=== PATIENT | male | born 1950 | race Caucasian/White ===

== ENCOUNTER 2016-06-01 11:19 | Inpatient (IN) ==
--- NOTE | 2016-06-01 12:01 | Emergency Department Note ---
START Narrative - START START: I examined this patient and my medical decision-making was reviewed with the [employer] PRO[employer] MANAGER/PA/Advanced Practice Nurse/Resident Physician. I agree with the documented findings, disposition and treatment plan as described except to the extent set forth below. I did see and spoke with the patient and examined him. Does have lower extremity edema, weight gain, shortness of breath worse with exertion. He does not have significant amount of orthopnea but he said he does not really lay flat. Workup will be initiated for further evaluation of possible heart failure or exacerbation and I did review his EKG showed normal sinus rhythm with a rate of 60 without acute ischemic changes 1201
[2016-06-01] MEDS ORDERED: Furosemide 40 MG/4 ML VIAL IVP ONE (12:19)
[2016-06-01 12:32] LABS: Basophils % 0.2 %; Eosinophils # 0.2 K/mcL (0.0-0.6); Eosinophils % 1.4 %; Hematocrit 23.9 % (37.5-50.1); Immature Granulocytes % 0.5 % (0-4); Lymphocytes % 6.9 %; Mean Corpuscular HGB Conc 29.3 g/dL (31.6-35.5); Mean Corpuscular Hemoglobin 21.1 pg (28.0-33.3); Mean Platelet Volume 8.3 fL (9.4-12.4); Monocytes # 1.4 K/mcL (0.0-1.3); Monocytes % 9.6 %; Neutrophils # 11.6 K/mcL (1.6-8.9); Platelet Count 282 K/mcL (140-400); Red Blood Count 3.32 M/mcL (4.19-5.50); Red Cell Distribution Width 16.5 % (11.5-14.5); Segmented Neutrophils % 81.4 %
--- NOTE | 2016-06-01 12:36 | Emergency Department Note ---
Disposition Clinical Impression: Diastolic CHF, acute on chronic, Anemia Iron deficiency anemia Qualifiers: Iron deficiency anemia type: unspecified iron deficiency Qualified Code(s): D50.9 - Iron deficiency anemia, unspecified Disposition: Admitted As Inpatient Referrals: Christi Balderrama MD [Primary Care Provider] - Forms: ED Satisfaction Letter, Work/School Release General Adult HPI - General Chief complaint: ED General Medical Stated complaint: weight gain/COSMO Time Seen by Provider: 06/01/16 11:40 Source: patient Limitations: no limitations Nursing Notes Reviewed: Yes Vital Signs Reviewed: Yes - History of Present Illness HPI Narrative: 65-year-old male with a history of diastolic CHF presents with chief complaint of weight gain and shortness of breath. Over the past month patient has gained 20 pounds, states she has significant swelling in his lower extremities, has been short of breath which worsens with exertion. Patient uses oxygen at night and is currently requiring 1 L to maintain saturation over 90%. Patient uses Lasix for CHF. Last echo on December 2015 showed EF of 60-65% with mild diasolic dysfunction. CTA from 2016 shows cardiomegaly with coronary artery calcification. Patient denies chest pain, blurry vision, dizziness. Pain Scale: 4 - Related Data Home Medications Medication Instructions Recorded Confirmed Amlodipine Besylate 10 mg PO DAILY 01/10/16 04/18/16 Atenolol 100 mg PO DAILY 01/10/16 04/18/16 Cholecalciferol (D-3) [Vitamin D] 1,000 mg PO DAILY 04/18/16 04/18/16 Nabumetone [Relafen] 500 mg PO BID 04/18/16 04/18/16 Previous Rx's Medication Instructions Recorded Furosemide [Lasix] 20 mg PO DAILY 30 Days 01/14/16 Pantoprazole Sodium [Protonix] 40 mg PO DAILY 30 Days 01/14/16 Allergies Allergy/AdvReac Type Severity Reaction Status Date / Time No Known Allergies Allergy Verified 04/18/16 11:50 Review of Systems: Constitutional: Denies fever, chills HEENT: Denies blurry vision, sinus congestion Heart: Denies chest pain, palpitations Lungs: admits sob, denies cough, productive sputum Abdomen: Denies nausea vomiting, abdominal pain Extremities: ith leg swelling, denies leg pain Neuro: denies headache, numbness, tingling, confusion Past Medical History - Past Medical History Medical history: Reports: arthritis, CHF, hypertension, other Surgical history: Reports: appendectomy, orthopedic, other, other Psychiatric history: Reports: anxiety - Social History Smoking Status: Former smoker Smokeless Tobacco Status: No Alcohol use: Reports: none Drug use: Reports: none Physical Exam Head exam: atraumatic, normocephalic Eye exam: normal appearance, PERRL, EOMI ENT exam: normal exam, normal oropharynx, mucous membranes moist Neck exam: normal inspection, full ROM Chest inspection: normal inspection, symmetric chest wall rise Respiratory exam: lower lobe rhonchi, diminished breath sounds Cardiovascular exam: Present: regular rate, normal rhythm Abdominal exam: soft, Non-Tender, normal bowel sounds Extremities exam: 2+ pitting edema, present peripheral pulses. Neurological exam: alert, oriented X3 - General Limitations: no limitations General appearance: alert Course - Reevaluation(s) Reevaluation #1: 65-year-old male presenting with shortness of breath and lower extremity swelling. Chest x-ray shows pulmonary venous congestion, patient was elevated and his WBC to 14. CXR shows no evidence of opacification or consolidation. Patient's hgb is 7. Since last year patient's hgb has been decreasing. Last year it was 10-11 and decreased to 8-9 end of last year and now is 7. He had EGD done by Dr. Glover in Mar 2016 which was negative. He also has chronic hyponatremia which we was seen for december of last year which was determined to be hypervolemic hypernatremia and resolved after diuresis. Patient states he had not had increased water or salt intake. He was accepted by Dr. Haney for admission. Time: 14:06 Vital Signs Temperature 98.7 F 06/01/16 11:20 Pulse Rate 62 06/01/16 11:20 Respiratory Rate 20 06/01/16 11:20 Blood Pressure 108/66 06/01/16 11:20 O2 Sat by Pulse Oximetry 89 06/01/16 11:20 Temperature 98.7 F 06/01/16 11:20 Pulse Rate 62 06/01/16 11:20 Respiratory Rate 20 06/01/16 11:20 Blood Pressure 108/66 06/01/16 11:20 O2 Sat by Pulse Oximetry 100 06/01/16 11:23 Oxygen Delivery Oxygen Delivery Room Air Medical Decision Making - Medical Records Medical records reviewed: Yes I reviewed the patient's medical records. - Lab Data Lab results reviewed: Yes I reviewed the patient's lab results. Result diagrams: 06/01/16 12:00 06/01/16 12:00 Lab Results 06/01/16 06/01/16 06/01/16 Range/Units 12:00 12:00 12:00 WBC 14.3 H (4.3-11.1) K/mcL RBC 3.32 L (4.19-5.50) M/mcL Hgb 7.0 L (12.9-16.9) g/dL Hct 23.9 L (37.5-50.1) % MCV 72.0 L (83.0-100.0) fL MCH 21.1 L (28.0-33.3) pg MCHC 29.3 L (31.6-35.5) g/dL RDW 16.5 H (11.5-14.5) % Plt Count 282 (140-400) K/mcL MPV 8.3 L (9.4-12.4) fL Immature Gran % 0.5 (0-4) % Seg Neutrophils % 81.4 % Lymphocytes % 6.9 % Monocytes % 9.6 % Eosinophils % 1.4 % Basophils % 0.2 % Neutrophils # 11.6 H (1.6-8.9) K/mcL Lymphocytes # 1.0 (0.6-4.6) K/mcL Monocytes # 1.4 H (0.0-1.3) K/mcL Eosinophils # 0.2 (0.0-0.6) K/mcL Basophils # 0.0 (0.0-0.2) K/mcL Sodium 124 L (136-145) mEq/L Potassium 4.2 (3.5-4.5) mEq/L Chloride 87 L (98-109) mEq/L Carbon Dioxide 28 (19-29) mEq/L BUN 18 (8-26) mg/dL Creatinine 0.82 (0.72-1.25) mg/dL Est GFR ( Amer) > 60 (> 60) Est GFR (Non-Af Amer) > 60 (> 60) BUN/Creatinine Ratio 22 (6-26) Glucose 143 H (70-99) mg/dL Calculated Osmolality 262 L (280-300) Calcium 9.2 (8.6-10.8) mg/dL Troponin I (0-0.03) ng/mL B-Natriuretic Peptide 299 H (0-100) pg/mL Urine Color (Yellow) Urine Clarity (Clear) Urine pH (5.0-8.0) pH Units Ur Specific [place] (1.010-1.025) Urine Protein (Neg-Trace) mg/dL Urine Glucose (UA) (Normal) mg/dL Urine Ketones (Negative) mg/dL Urine Blood (Negative) Urine Nitrite (Negative) Urine Bilirubin (Negative) Urine Urobilinogen (Normal) mg/dL Ur Leukocyte Esterase (Negative) Ur Culture Indicated? (NO) 06/01/16 06/01/16 Range/Units 12:00 13:51 WBC (4.3-11.1) K/mcL RBC (4.19-5.50) M/mcL Hgb (12.9-16.9) g/dL Hct (37.5-50.1) % MCV (83.0-100.0) fL MCH (28.0-33.3) pg MCHC (31.6-35.5) g/dL RDW (11.5-14.5) % Plt Count (140-400) K/mcL MPV (9.4-12.4) fL Immature Gran % (0-4) % Seg Neutrophils % % Lymphocytes % % Monocytes % % Eosinophils % % Basophils % % Neutrophils # (1.6-8.9) K/mcL Lymphocytes # (0.6-4.6) K/mcL Monocytes # (0.0-1.3) K/mcL Eosinophils # (0.0-0.6) K/mcL Basophils # (0.0-0.2) K/mcL Sodium (136-145) mEq/L Potassium (3.5-4.5) mEq/L Chloride (98-109) mEq/L Carbon Dioxide (19-29) mEq/L BUN (8-26) mg/dL Creatinine (0.72-1.25) mg/dL Est GFR ( Amer) (> 60) Est GFR (Non-Af Amer) (> 60) BUN/Creatinine Ratio (6-26) Glucose (70-99) mg/dL Calculated Osmolality (280-300) Calcium (8.6-10.8) mg/dL Troponin I 0.00 (0-0.03) ng/mL B-Natriuretic Peptide (0-100) pg/mL Urine Color Yellow (Yellow) Urine Clarity Clear (Clear) Urine pH 6.5 (5.0-8.0) pH Units Ur Specific [place] 1.015 (1.010-1.025) Urine Protein Negative (Neg-Trace) mg/dL Urine Glucose (UA) Normal (Normal) mg/dL Urine Ketones Negative (Negative) mg/dL Urine Blood Negative (Negative) Urine Nitrite Negative (Negative) Urine Bilirubin Negative (Negative) Urine Urobilinogen Normal (Normal) mg/dL Ur Leukocyte Esterase Negative (Negative) Ur Culture Indicated? NO (NO) - Radiology Data Radiology results reviewed: Yes I reviewed the patient's radiology results.
[2016-06-01 12:46] LABS: BUN/Creatinine Ratio 22 (6-26); Blood Urea Nitrogen 18 mg/dL (8-26); Calcium 9.2 mg/dL (8.6-10.8); Carbon Dioxide 28 mEq/L (19-29); Chloride 87 mEq/L (98-109); Glucose 143 mg/dL (70-99); Osmolality,Calculated 262 (280-300); Potassium 4.2 mEq/L (3.5-4.5); Sodium 124 mEq/L (136-145); eGFR For African Americans > 60 (> 60); eGFR For Non-African Americans > 60 (> 60)
[2016-06-01 14:00] LABS: Bilirubin,Urine Negative (Negative); Blood,Urine Negative (Negative); Clarity,Urine Clear (Clear); Color,Urine Yellow (Yellow); Glucose,Urine (UA) Normal (Normal); Ketones,Urine Negative (Negative); Leukocyte Esterase,Urine Negative (Negative); Nitrite,Urine Negative (Negative); PH,Urine 6.5 pH Units (5.0-8.0); Protein,Urine Negative (Neg-Trace); Specific Gravity,Urine 1.015 (1.010-1.025); Urobilinogen,Urine Normal (Normal)
[2016-06-01] MEDS ORDERED: Naloxone 0.4 MG/ML INJ IVP PRN (19:02)
--- NOTE | 2016-06-01 19:07 | Internal Med History&Physical ---
Date of Encounter: 06/01/16 Time of Encounter: 18:50 Assessment and Plan (1) Diastolic CHF, acute on chronic Current visit: Yes Status: Acute patient with a history of normal LVEF but with diastolic dysfunction comes in with signs and symptoms concerning for heart failure exacerbation, etiology could be from fluid indiscretion we will admit for daily weights, fluid and salt restriction, aggressive diuresis with IV lasix will continue BB, unclear why he is not on DAVE-I, we will clarify that (2) Anemia Current visit: Yes Status: Chronic patient has a hx of chronic stable microcytic anemia but comes in with a 1 point drop in the setting of symptoms of anemia that could also be attributed to heart failure, we will check iron panel and ferritin levels, we will consider one unit of PRBC transfusion in AM after we have diuresed him he will need outpatient colonoscopy for etiology, will check stool guiac Qualifiers: Anemia type: iron deficiency Iron deficiency anemia type: chronic blood loss Qualified Code(s): D50.0 - Iron deficiency anemia secondary to blood loss (chronic) (3) Hypertension Current visit: Yes Status: Chronic he os on atenolol and amlodipine, we will continue these with BP monitoring Qualifiers: Hypertension type: essential hypertension Qualified Code(s): I10 - Essential (primary) hypertension (4) Hyponatremia Current visit: Yes Status: Chronic patient has chronic hyponatremia, may be related to hypervolemia from heart failure, we will diurese him and follow BMP (5) Obesity Current visit: Yes Status: Chronic will need counseling on diet Qualifiers: Obesity type: due to excess calories Obesity severity: morbid Qualified Code(s): E66.01 - Morbid (severe) obesity due to excess calories (6) Rash Current visit: Yes Status: Acute may be related to sweat, will use aquaphor Internal Medicine - H&P: HPI Chief complaint: weight gain Admitted From: Emergency Dept Plans for Post Hospital Care: Home History of present illness: Mr. Glover is a 65 year old male with a history of diastolic heart failure on twice daily lasix who comes in with weight gain and worsening shortness of breath. He reports that he was in his usual state of health until about a month prior when he began to have weight gain (estimated at 20LBS), progressive worsening SOB associated with dyspnea on exertion, reduced exercise tolerance, easy fatigability and reduced walking distance. He also noticed significant lower extremity swelling. He denies change in stool color or obvious signs of blood loss. He denies lasix non adherence or salt indiscretion. He says that though he adheres to a strict 2L/day fluid restriction he consumes lots of ice chips. He uses oxygen at night. His last echo was in December 2015 which showed EF of 60-65% with mild diastolic dysfunction. In the ER his CXR showed pulmonary venous congestion, his Hb was 7, down from around 8. He is therefor being admitted for further evaluation and management. Past Med Surg Social Fam HX - Past Medical History Medical history: arthritis, CHF, hypertension, other Psychiatric history: anxiety - Past Surgical History Surgical History: appendectomy, orthopedic, other, other - Social History Smoking Status: Former smoker Smokeless Tobacco Status: No Alcohol use: none Drug use: none - Family History Mother Living Status: Age at : 70 Cause of : Aneurysm Hx Family Cardiac Disorders: No Hx Family Respiratory Disorders: No Hx Family Cancer: No Hx Family GI Disorders: No Hx Family Genitourinary Disorders: No Hx Family Endocrine Disorder: Yes (DM) Hx Family Musculoskeletal Disorders: No Hx Family Neuromuscular Disorders: No Hx Family Neurologic Disorders: No Hx Family HEENT Disorders: No Hx Family Autoimmune Disorders: No Hx Family Reproductive Disorders: No Hx Family Psychosocial Disorders: No Hx Family Medical Disorders: No Father Living Status: Age at : 70 Cause of : cancer, colon Hx Family Cardiac Disorders: Yes Hx Family Respiratory Disorders: No Hx Family Cancer: Yes (Colon) Hx Family GI Disorders: No Hx Family Genitourinary Disorders: No Hx Family Endocrine Disorder: No Hx Family Musculoskeletal Disorders: No Hx Family Neuromuscular Disorders: No Hx Family Neurologic Disorders: No Hx Family HEENT Disorders: No Hx Family Autoimmune Disorders: No Hx Family Reproductive Disorders: No Hx Family Medical Disorders: No Brother Name: Tavon Exhibit Display Representative Age: 63 Family Member Ethnicity: Non- Living Status: Still Living Hx Family Cardiac Disorders: No Hx Family Respiratory Disorders: No Hx Family Cancer: No Hx Family GI Disorders: No Hx Family Genitourinary Disorders: No Hx Family Endocrine Disorder: Yes (DM) Hx Family Musculoskeletal Disorders: No Hx Family Neuromuscular Disorders: No Hx Family Neurologic Disorders: No Hx Family HEENT Disorders: No Hx Family Autoimmune Disorders: No Hx Family Reproductive Disorders: No Hx Family Psychosocial Disorders: No Hx Family Medical Disorders: No - Additional Family History Additional family history: father of colon cancer, mother is ; she had no known medical history Internal Medicine - H&P: Meds Amlodipine Besylate 10 mg PO DAILY 01/10/16 [History] Atenolol 100 mg PO DAILY 01/10/16 [History] Furosemide [Lasix] 20 mg PO DAILY 30 Days 01/14/16 [Rx] Pantoprazole Sodium [Protonix] 40 mg PO DAILY 30 Days 01/14/16 [Rx] Cholecalciferol (D-3) [Vitamin D] 1,000 mg PO DAILY 04/18/16 [History] Ferrous Sulfate [Iron] 325 mg PO BID 06/01/16 [History] Hydroxyzine HCl 25 mg PO TID 06/01/16 [History] Allergies No Known Allergies Allergy (Verified 04/18/16 11:50) All Systems PM: A 10-system review of systems was performed and is negative for pertinent findings except as documented above in the HPI. - Constitutional Constitutional: fatigue, malaise, weakness, weight gain, no chills, no fever(s) , no night sweats - EENT Eyes: no change in vision, no discharge, no pain, no photophobia Ears: no ear discharge, no ear pain, no tinnitus Nose, mouth and throat: no dysphagia, no nasal discharge, no neck pain, no sore throat - Cardiovascular Cardiovascular ROS IM: dyspnea, dyspnea on exertion, edema, orthopnea, no chest pain, no diaphoresis, no lightheadedness, no palpitations, no syncope - Respiratory Respiratory: cough, dyspnea, dyspnea on exertion, no wheezing, no excessive phlegm production - Gastrointestinal Gastrointestinal: early satiety, no abdominal pain, no diarrhea, no hematemesis , no hematochezia, no melena, no nausea, no vomiting - Genitourinary Genitourinary ROS male: nocturia, urinary frequency - Musculoskeletal Musculoskeletal ROS IM: muscle weakness, no numbness, no tingling - Integumentary Integumentary IM: rash, no unusual bruising - Neurological Neurological ROS: no confusion, no convulsions, no focal weakness, no numbness, no tingling, no tremor(s) - Psychiatric Psychiatric: no auditory hallucinations, no hallucinations - Endocrine Endocrine IM: fatigue - Hematologic/Lymphatic Hematologic/Lymphatic: no easy bruising - Allergic/Immunologic Allergic/Immunologic: no tongue swelling, no throat swelling, no wheezing - Constitutional Vitals: Temp Pulse Resp BP Pulse Ox 0 F L 65 18 104/50 95 06/01/16 16:32 06/01/16 15:40 06/01/16 16:32 06/01/16 16:32 06/01/16 15:40 PHYSICAL EXAMINATION: GENERAL: Adult male lying in bed comfortably at an angle, Alert, not in acute distress, HEENT: NC/AT, EOMI, PERRLA, anicteric sclera, normal conjunctiva, supple, clear nares, moist mucous membranes, clear oropharynx, central uvula RESP: no chest wall tenderness with palpation, lungs are clear to auscultation bilaterally, mild basilar crackles bilaterally CARDIO: Normal hearts sounds; S1 and 2, RRR with no murmurs, no JVD, ankle edema noted GI: Soft, full, no tenderness, no organomegaly felt, normal bowel sounds heard MUSCULOSKELETAL: grossly normal movements bilaterally, no deformities noted, no calf tenderness EXTREMITIES: No clubbing, cyanosis but has bipedal pitting edema up to the tibial tuberosity, NEUROLOGIC: CN 2-12 intact grossly. No motor/sensory deficit appreciated, PSYCHIATRY: AAO x 3. Mood is fair, exhibits appropriate judgement SKIN: red rash at the back Internal Med - H&P Results - Labs CBC & Chem 7: 06/01/16 12:00 06/01/16 12:00 - EKG Data -: EKG Interpreted by Myself - Diagnostic Studies Chest x-ray Status: image reviewed by me
[2016-06-01] MEDS: hydrOXYzine pamoate 25 MG CAPSULE PO SCH (22:11)
[2016-06-02] MEDS: *HR* Heparin 5,000 UNIT/ML VIAL SQ SCH ×3 (05:10→21:12)
[2016-06-02] MEDS ORDERED: Furosemide 40 MG/4 ML VIAL IVP SCH (06:00)
[2016-06-02 06:30] LABS: Hemoglobin 6.8 g/dL (12.9-16.9)
[2016-06-02 06:31] LABS: Hematocrit 23.8 % (37.5-50.1); Mean Corpuscular HGB Conc 28.6 g/dL (31.6-35.5); Mean Corpuscular Hemoglobin 20.5 pg (28.0-33.3); Mean Corpuscular Volume 71.9 fL (83.0-100.0); Mean Platelet Volume 8.8 fL (9.4-12.4); Platelet Count 291 K/mcL (140-400); Red Blood Count 3.31 M/mcL (4.19-5.50); Red Cell Distribution Width 16.6 % (11.5-14.5)
[2016-06-02 06:44] LABS: BUN/Creatinine Ratio 24 (6-26); Blood Urea Nitrogen 17 mg/dL (8-26); Calcium 9.1 mg/dL (8.6-10.8); Carbon Dioxide 31 mEq/L (19-29); Chloride 90 mEq/L (98-109); Glucose 98 mg/dL (70-99); Magnesium 2.1 mg/dL (1.6-2.6); Osmolality,Calculated 272 (280-300); Phosphorous 4.5 mg/dL (2.3-4.7); Potassium 4.2 mEq/L (3.5-4.5); Sodium 130 mEq/L (136-145); eGFR For African Americans > 60 (> 60); eGFR For Non-African Americans > 60 (> 60)
[2016-06-02 06:46] LABS: % Iron Saturation 4 % (20-55); Iron 20 mcg/dL (65-175); Transferrin 362 mg/dL (174-364)
[2016-06-02 07:08] LABS: Ferritin 17 ng/ml (22-275)
[2016-06-02] MEDS: amLODIPine 5 MG TABLET PO SCH (08:23)
[2016-06-02] MEDS: Cholecalciferol (D-3) 1,000 UNIT TABLET PO SCH (08:24)
[2016-06-02] MEDS: hydrOXYzine pamoate 25 MG CAPSULE PO SCH ×3 (08:24→21:12)
[2016-06-02] MEDS ORDERED: Iron Sucrose Complex 400 MG in 0.9 % Sodium Chloride 250 ML IVPB ONE (09:34)
--- NOTE | 2016-06-02 11:49 | Internal Med Progress Note ---
<Venkat Shukla Saurav - Last Filed: 06/02/16 13:04> Date of Encounter: 06/02/16 Time of Encounter: 09:00 - Assessment and plan (1) Diastolic CHF, acute on chronic Current Visit: Yes Status: Acute Assessment and plan: Mr. Glover 65-year-old male with a history of mild left ventricular diastolic dysfunction with last echocardiogram completed 01/11/2016. Clinical presentation of diastolic heart failure. Patient presents with fluid overload. Patient's home dose of Lasix is 20 mg by mouth daily. Plan: - 40 mg Lasix twice a day IV - 1500 mL fluid restriction - Cardiac diet - Daily weights - Strict intake and output monitoring (2) Iron deficiency anemia Current Visit: Yes Status: Acute Assessment and plan: Mr. Glover has a history of chronic iron efficiency anemia has recently undergone endoscopy and colonoscopy in March of this year that demonstrated nonbleeding gastric ulcer. No obvious signs of bleeding have been identified thus far. -Hemoglobin 6.8, MCV 71.9, iron 20, percent saturation 4, transferrin ferritin 362, ferritin 17 Plan: - 1 unit PRBCs - 400 mg IV Iron - Continue by mouth iron twice a day - We will discuss patient with gastroenterology. Qualifiers: Iron deficiency anemia type: unspecified iron deficiency Qualified Code(s) : D50.9 - Iron deficiency anemia, unspecified (3) Obesity Current Visit: Yes Status: Chronic Assessment and plan: Morbid obesity with a BMI of 46.5 obesity is likely contributing to chronic medical conditions including hypertension, diastolic heart failure. Patient will benefit from diet and exercise to reduce Risk of further medical complications. Qualifiers: Obesity type: due to excess calories Obesity severity: morbid Qualified Code(s): E66.01 - Morbid (severe) obesity due to excess calories (4) Hyponatremia Current Visit: No Status: Acute Assessment and plan: Patient admitted with a sodium of 124 in the setting of diastolic heart failure with fluid overload. Patient's has been on fluid restrictions and receiving diuresis with an improvement in his sodium to 1:30. This appears to be dilutional from fluid retention cannot rule out SIADH the moment. Plan: - Continue current diuresis - Continue fluid restrictions - Home review of medications is not demonstrating any causes. (5) Tobacco abuse Current Visit: No Status: Acute Assessment and plan: Former smoker. (6) DVT prophylaxis Current Visit: No Status: Acute Assessment and plan: Subcutaneous heparin 5000 units every 8 hours - Subjective Interval history: Mr. Glover 65-year-old male was seen and evaluated patient bedside this morning. He said that he still continues to feel little short of breath he does wear 2 L of oxygen at home. He has noticed increased swelling in his bilateral lower extremities over the last few weeks but has progressively gotten worse. He does admit to a history of heart failure in the past but says it has been several years since he has had episodes like this. He has a history of chronic microcytic anemia and has recently had a endoscopy and colonoscopy here in [place]. He does take by mouth iron but says that he is unsure of the cause. He feels tired today but otherwise is asymptomatic. He is agreeable to 1 unit of PRBCs. - Constitutional Vitals: Temp Pulse Resp BP Pulse Ox 97.7 F 62 18 99/61 92 06/02/16 11:05 06/02/16 11:05 06/02/16 11:05 06/02/16 11:05 06/02/16 11:05 General appearance: Present: cooperative, A&O X 3, pleasant - Head Head exam: Present: atraumatic, normocephalic - Eye Eye exam: Present: PERRL, conjuntiva pink, sclera anicteric Pupils: Present: PERRL - ENT ENT exam: Present: mucous membranes moist - Neck Neck exam general surgery: Present: supple, trachea midline. Absent: lymphadenopathy - Respiratory Respiratory exam: Present: rhonchi (Diffuse rhonchi in all lung cary). Absent : accessory muscle use, rales, wheezes - Cardiovascular Cardiovascular exam: Present: RRR, +S1, +S2. Absent: diastolic murmur, gallop, rubs, systolic murmur - GI/Abdominal GI/Abdominal exam: Present: normal bowel sounds, soft, no peritoneal signs. Absent: distended, tenderness Additional comments: Obese abdomen - Extremities Exam Additional comments: Bilateral lower extremity edema 1+ pitting up to mid thigh. - Neurological Exam Neurological exam: Present: alert, oriented X3, no focal deficits. Absent: pronater drift, facial droop, speech deficit - Psychiatric Psychiatric exam: Present: normal affect, normal mood Internal Medicine: Result - Labs CBC & Chem 7: 06/02/16 06:03 06/02/16 06:03 Labs: Short CBC 06/02/16 Range/Units 06:03 WBC 9.2 (4.3-11.1) K/mcL Hgb 6.8 L (12.9-16.9) g/dL Hct 23.8 L (37.5-50.1) % Plt Count 291 (140-400) K/mcL [facility] 06/02/16 06:03 Sodium 130 L Potassium 4.2 Chloride 90 L Carbon Dioxide 31 H BUN 17 Creatinine 0.72 Glucose 98 Calcium 9.1 Consult Discharge Plan - Plan Instructions: Heart Failure (GEN) Referrals: Christi Balderrama MD [Primary Care Provider] - <SujitVictorino R - Last Filed: 06/02/16 17:46> Date of Encounter: 06/02/16 - Constitutional Vitals: Temp Pulse Resp BP Pulse Ox 97.7 F 64 18 123/82 100 06/02/16 16:07 06/02/16 16:07 06/02/16 16:07 06/02/16 16:07 06/02/16 16:07 Internal Medicine: Result - Labs CBC & Chem 7: 06/02/16 06:03 06/02/16 06:03 Labs: Short CBC 06/02/16 Range/Units 06:03 WBC 9.2 (4.3-11.1) K/mcL Hgb 6.8 L (12.9-16.9) g/dL Hct 23.8 L (37.5-50.1) % Plt Count 291 (140-400) K/mcL [facility] 06/02/16 06:03 Sodium 130 L Potassium 4.2 Chloride 90 L Carbon Dioxide 31 H BUN 17 Creatinine 0.72 Glucose 98 Calcium 9.1 - Attending Attestation I examined this patient and my medical decision-making was reviewed with the [employer]/PA/Advanced Practice Nurse/Resident Physician. I agree with the documented findings, disposition and treatment plan as described except to the extent set forth below. Agree with Dr. Shukla. Fluid restriction, lasix via iv, PRBC today.
[2016-06-02] MEDS ORDERED: 0.9 % Sodium Chloride 250 ML ONE (13:32)
[2016-06-02] MEDS: Furosemide 40 MG/4 ML VIAL IVP SCH (16:58)
--- NOTE | 2016-06-02 17:34 | Electrocardiograph Report ---
[place] [id number] Test Date: 2016-06-01 Pat Name: Leonard Glover Department: 103 Room: 2A11 Gender: M Project Asst: MOOSE : 1950 Requested By: Venu Francis Order Number: [id number] Reading MD: Jermaine Quigley MD Measurements Intervals [place] Rate: 60 P: 51 ID: [id number] QRS: 45 QRSD: 109 T: 61 QT: 428 QTc: 429 Interpretive Statements SINUS RHYTHM Electronically Signed On 06-02-2016 17:32:56 EDT by Jermaine Quigley MD
[2016-06-03] MEDS: *HR* Heparin 5,000 UNIT/ML VIAL SQ SCH ×3 (05:05→21:24)
[2016-06-03 06:43] LABS: Hematocrit 28.6 % (37.5-50.1); Hemoglobin 8.3 g/dL (12.9-16.9); Mean Corpuscular Hemoglobin 21.5 pg (28.0-33.3); Mean Corpuscular Volume 74.1 fL (83.0-100.0); Mean Platelet Volume 8.8 fL (9.4-12.4); Platelet Count 375 K/mcL (140-400); Red Blood Count 3.86 M/mcL (4.19-5.50)
[2016-06-03 06:48] LABS: BUN/Creatinine Ratio 25 (6-26); Blood Urea Nitrogen 18 mg/dL (8-26); Calcium 9.5 mg/dL (8.6-10.8); Carbon Dioxide 33 mEq/L (19-29); Chloride 92 mEq/L (98-109); Glucose 92 mg/dL (70-99); Osmolality,Calculated 278 (280-300); Potassium 4.3 mEq/L (3.5-4.5); Sodium 133 mEq/L (136-145); eGFR For African Americans > 60 (> 60); eGFR For Non-African Americans > 60 (> 60)
[2016-06-03] MEDS: Furosemide 40 MG/4 ML VIAL IVP SCH ×2 (07:45→17:19)
[2016-06-03] MEDS: amLODIPine 5 MG TABLET PO SCH (07:46)
[2016-06-03] MEDS: Cholecalciferol (D-3) 1,000 UNIT TABLET PO SCH (07:46)
[2016-06-03] MEDS: hydrOXYzine pamoate 25 MG CAPSULE PO SCH ×3 (07:46→21:24)
--- NOTE | 2016-06-03 11:26 | Internal Med Progress Note ---
<Leonard Arredondo - Last Filed: 06/03/16 11:23> Date of Encounter: 06/03/16 Time of Encounter: 11:25 - Assessment and plan (1) Diastolic CHF, acute on chronic Current Visit: Yes Status: Acute Assessment and plan: mild left ventricular diastolic dysfunction with last echocardiogram completed 01/11/2016. No Tr jet so Pulmonary HTN less likely. He is net negative nearly 2L. now on room air. Plan: - 40 mg Lasix twice a day IV - 1500 mL fluid restriction - Cardiac diet - Daily weights -Strict intake and output monitoring -continue with antihypertensives- currently at goal. -Should have OP sleep apnea testing if not already done so. (2) Acute hypoxemic respiratory failure Current Visit: Yes Status: Acute Assessment and plan: resolved. Now on Room air. secondary to pulmonary edema. (3) Edema Current Visit: Yes Status: Acute Assessment and plan: as stated above. (4) Iron deficiency anemia Current Visit: Yes Status: Acute Assessment and plan: Mr. Glover has a history of chronic iron efficiency anemia has recently undergone endoscopy and colonoscopy in March of this year that demonstrated nonbleeding gastric ulcer. No obvious signs of bleeding have been identified thus far. Hg stable and asuncion appropriate with transfusion. Current Hg is 8.3. Also recieved IV iron. Plan: - Continue by mouth iron twice a day - patient may benefit from camera pill. We will discuss with GI. Qualifiers: Iron deficiency anemia type: unspecified iron deficiency Qualified Code(s) : D50.9 - Iron deficiency anemia, unspecified (5) Obesity Current Visit: Yes Status: Chronic Assessment and plan: Morbid obesity with a BMI of 46.5 obesity is likely contributing to chronic medical conditions including hypertension, diastolic heart failure. Patient will benefit from diet and exercise to reduce Risk of further medical complications. Qualifiers: Obesity type: due to excess calories Obesity severity: morbid Qualified Code(s): E66.01 - Morbid (severe) obesity due to excess calories (6) Tobacco abuse Current Visit: No Status: Acute Assessment and plan: patient has history of smoking. states he has recently quit. continued smoking cessation. (7) Hyponatremia Current Visit: No Status: Acute Assessment and plan: hypervolemic hyponatremia. Asymptomatic. Improving with diuresis. SNa 133 today. (8) Alkalosis, metabolic Current Visit: Yes Status: Acute Assessment and plan: contraction alkalosis from diuresis. Mild and asymptomatic continue to monitor. (9) DVT prophylaxis Current Visit: Yes Status: Acute Assessment and plan: SQ heparin. - Subjective Interval history: No major events overnight. Patient states that he is feeling better. He denies any aches or pains. He denies any melena or hematochezia. He has no further complaints or concerns at this time. - Constitutional Vitals: Temp Pulse Resp BP Pulse Ox 98.9 F 76 18 104/55 93 06/03/16 07:12 06/03/16 07:12 06/03/16 07:12 06/03/16 07:12 06/03/16 07:12 General appearance: Present: cooperative, A&O X 3, pleasant - Head Head exam: Present: atraumatic, normocephalic - Eye Eye exam: Present: PERRL, conjuntiva pink, sclera anicteric Pupils: Present: PERRL - Neck Neck exam general surgery: Present: supple, trachea midline. Absent: lymphadenopathy - Respiratory Respiratory exam: Present: CTAB. Absent: accessory muscle use, rales, rhonchi, wheezes Additional comments: crackles at bases. - Cardiovascular Cardiovascular exam: Present: RRR, +S1, +S2. Absent: diastolic murmur, gallop, rubs, systolic murmur - Extremities Exam Extremities exam: Present: pedal edema (2+ to the level of the knee. ), warm, radial pulses palpable and symetrical. Absent: calf tenderness, cyanotic - Skin Skin exam: Present: dry, intact Internal Medicine: Result - Labs CBC & Chem 7: 06/03/16 05:06 06/03/16 05:06 Labs: Short CBC 06/03/16 Range/Units 05:06 WBC 10.9 (4.3-11.1) K/mcL Hgb 8.3 L D (12.9-16.9) g/dL Hct 28.6 L (37.5-50.1) % Plt Count 375 (140-400) K/mcL BMP 06/03/16 05:06 Sodium 133 L Potassium 4.3 Chloride 92 L Carbon Dioxide 33 H BUN 18 Creatinine 0.73 Glucose 92 Calcium 9.5 Consult Discharge Plan - Plan Instructions: Heart Failure (GEN) Referrals: Christi Balderrama MD [Primary Care Provider] - <Beckett,Victorino R - Last Filed: 06/03/16 14:55> Date of Encounter: 06/03/16 - Constitutional Vitals: Temp Pulse Resp BP Pulse Ox 98.7 F 79 18 108/58 92 06/03/16 11:32 06/03/16 11:32 06/03/16 11:32 06/03/16 11:32 06/03/16 11:32 Internal Medicine: Result - Labs CBC & Chem 7: 06/03/16 05:06 06/03/16 05:06 Labs: Short CBC 06/03/16 Range/Units 05:06 WBC 10.9 (4.3-11.1) K/mcL Hgb 8.3 L D (12.9-16.9) g/dL Hct 28.6 L (37.5-50.1) % Plt Count 375 (140-400) K/mcL BMP 06/03/16 05:06 Sodium 133 L Potassium 4.3 Chloride 92 L Carbon Dioxide 33 H BUN 18 Creatinine 0.73 Glucose 92 Calcium 9.5 - Attending Attestation I examined this patient and my medical decision-making was reviewed with the SHEET ROLLER OPERATOR/PA/Advanced Practice Nurse/Resident Physician. I agree with the documented findings, disposition and treatment plan as described except to the extent set forth below. Agree with DR. Arredondo. Anemia improving. monitor hb, continue diuretics. SUSAN gonsalez as outpatient. possible d/c tomorow. D/W patient.
[2016-06-04] MEDS: *HR* Heparin 5,000 UNIT/ML VIAL SQ SCH ×3 (05:05→21:22)
[2016-06-04 05:24] LABS: Hemoglobin 7.5 g/dL (12.9-16.9); Mean Corpuscular Volume 75.6 fL (83.0-100.0)
[2016-06-04 05:26] LABS: Basophils % 0.2 %; Eosinophils # 0.8 K/mcL (0.0-0.6); Eosinophils % 7.5 %; Immature Granulocytes % 0.5 % (0-4); Lymphocytes # 2.2 K/mcL (0.6-4.6); Lymphocytes % 19.6 %; Mean Corpuscular HGB Conc 28.8 g/dL (31.6-35.5); Mean Corpuscular Hemoglobin 21.8 pg (28.0-33.3); Mean Platelet Volume 8.6 fL (9.4-12.4); Monocytes # 1.5 K/mcL (0.0-1.3); Monocytes % 13.5 %; Neutrophils # 6.5 K/mcL (1.6-8.9); Platelet Count 309 K/mcL (140-400); Red Blood Count 3.44 M/mcL (4.19-5.50); Red Cell Distribution Width 18.2 % (11.5-14.5); Segmented Neutrophils % 58.7 %
[2016-06-04] MEDS ORDERED: Acetaminophen 325 MG TABLET PO ONE (05:30)
[2016-06-04 05:34] LABS: BUN/Creatinine Ratio 27 (6-26); Blood Urea Nitrogen 18 mg/dL (8-26); Carbon Dioxide 33 mEq/L (19-29); Chloride 93 mEq/L (98-109); Glucose 100 mg/dL (70-99); Magnesium 1.9 mg/dL (1.6-2.6); Osmolality,Calculated 276 (280-300); Sodium 132 mEq/L (136-145); eGFR For African Americans > 60 (> 60); eGFR For Non-African Americans > 60 (> 60)
[2016-06-04 05:51] LABS: Anisocytosis 2+ (Not Present); Hypochromasia Present (Not Present); Platelet Estimate Normal (Normal)
[2016-06-04 05:52] LABS: Polychromasia 2+ (Not Present)
[2016-06-04 07:46] LABS: Bilirubin,Direct 0.1 mg/dL (0.0-0.5); Bilirubin,Total 0.4 mg/dL (0.2-1.2); Lactate Dehydrogenase 215 Units/L (159-327)
[2016-06-04] MEDS: amLODIPine 5 MG TABLET PO SCH (07:46)
[2016-06-04] MEDS: Furosemide 40 MG/4 ML VIAL IVP SCH ×2 (07:46→18:09)
[2016-06-04] MEDS: Cholecalciferol (D-3) 1,000 UNIT TABLET PO SCH (07:52)
[2016-06-04] MEDS: hydrOXYzine pamoate 25 MG CAPSULE PO SCH ×3 (07:52→21:21)
--- NOTE | 2016-06-04 08:43 | Internal Med Progress Note ---
<Leonard Arredondo - Last Filed: 06/04/16 09:04> Date of Encounter: 06/04/16 Time of Encounter: 08:39 - Assessment and plan (1) Diastolic CHF, acute on chronic Current Visit: Yes Status: Acute Assessment and plan: mild left ventricular diastolic dysfunction with last echocardiogram completed 01/11/2016. No Tr jet so Pulmonary HTN less likely. He is net negative nearly 1300 cc's. Plan: - continue 40 mg Lasix twice a day IV. would consider transitioning to PO in the AM. - 1500 mL fluid restriction - Cardiac diet - Daily weights -Strict intake and output monitoring -continue with antihypertensives- currently at goal. -Should have OP sleep apnea testing if not already done so. Patient is close to being medically stable for discharge. However there are some social issues with him not being able to get into his house. He has been staying in a hotel. PT/OT and social welfare administrator needed. May need placement. (2) Acute hypoxemic respiratory failure Current Visit: Yes Status: Acute Assessment and plan: secondary to pulmonary edema. improving. O2 as needed. I think he will be able to wean to room air. He dose where O2 at baseline however he states only at night. (3) Edema Current Visit: Yes Status: Acute Assessment and plan: as stated above. Qualifiers: Qualified Code(s): R60.9 - Edema, unspecified (4) Iron deficiency anemia Current Visit: Yes Status: Acute Assessment and plan: Mr. Glover has a history of chronic iron efficiency anemia has recently undergone endoscopy and colonoscopy in March of this year that demonstrated nonbleeding gastric ulcer. No obvious signs of bleeding have been identified thus far. Hg trending down slowly. - Continue by mouth iron twice a day - patient may benefit from camera pill. would recommend discussing with GI on sunday. Qualifiers: Iron deficiency anemia type: unspecified iron deficiency Qualified Code(s) : D50.9 - Iron deficiency anemia, unspecified (5) Obesity Current Visit: Yes Status: Chronic Assessment and plan: Morbid obesity with a BMI of 46.5 obesity is likely contributing to chronic medical conditions including hypertension, diastolic heart failure. Patient will benefit from diet and exercise to reduce Risk of further medical complications. Qualifiers: Obesity type: due to excess calories Obesity severity: morbid Qualified Code(s): E66.01 - Morbid (severe) obesity due to excess calories (6) Tobacco abuse Current Visit: No Status: Acute Assessment and plan: patient has history of smoking. states he has recently quit. continued smoking cessation. (7) Hyponatremia Current Visit: No Status: Acute Assessment and plan: hypervolemic hyponatremia. Asymptomatic. Improving with diuresis. SNa 132 today. (8) Alkalosis, metabolic Current Visit: Yes Status: Acute Assessment and plan: contraction alkalosis from diuresis. Mild and asymptomatic continue to monitor. (9) DVT prophylaxis Current Visit: Yes Status: Acute Assessment and plan: SQ heparin. - Subjective Interval history: No major events overnight.Patient states that he is feeling better. He is breathing much easier and feels swollen. He admits to constipation. Denies N/V/ D and abdominal pain. He has no further complaints at this time. We did discuss discharge plans. However he states that he has become week and deconditioned. He states he is barley able to get in his house because of his steps. In fact he has had to stay in a hotel over the past several weeks. I will discuss with client services representative on Sunday when they are available. I think he will likely need placement or inpatient rehab. - Constitutional Vitals: Temp Pulse Resp BP Pulse Ox 98.5 F 74 18 102/69 91 06/04/16 06:56 06/04/16 06:56 06/04/16 06:56 06/04/16 07:45 06/04/16 06:56 General appearance: Present: cooperative, A&O X 3, morbidly obese, pleasant - Head Head exam: Present: atraumatic, normocephalic - Eye Eye exam: Present: PERRL, conjuntiva pink, sclera anicteric Pupils: Present: PERRL - Neck Neck exam general surgery: Present: supple, trachea midline. Absent: lymphadenopathy - Respiratory Respiratory exam: Present: CTAB. Absent: accessory muscle use, rales, rhonchi, wheezes Additional comments: imprved. No crackles at the bases today. - GI/Abdominal GI/Abdominal exam: Present: normal bowel sounds, soft, no peritoneal signs. Absent: distended, tenderness Additional comments: obese - Extremities Exam Extremities exam: Present: pedal edema, warm, radial pulses palpable and symetrical. Absent: calf tenderness, cyanotic Additional comments: 2+ to the knee bilaterally. - Skin Skin exam: Present: dry, intact Internal Medicine: Result - Labs CBC & Chem 7: 06/04/16 05:12 06/04/16 05:12 Labs: Short CBC 06/04/16 Range/Units 05:12 WBC 11.1 (4.3-11.1) K/mcL Hgb 7.5 L (12.9-16.9) g/dL Hct 26.0 L (37.5-50.1) % Plt Count 309 (140-400) K/mcL Neutrophils # 6.5 (1.6-8.9) K/mcL BMP 06/04/16 05:12 Sodium 132 L Potassium 4.0 Chloride 93 L Carbon Dioxide 33 H BUN 18 Creatinine 0.67 L Glucose 100 H Calcium 9.0 Liver Function 06/04/16 Range/Units 05:12 Total Bilirubin 0.4 (0.2-1.2) mg/dL Direct Bilirubin 0.1 (0.0-0.5) mg/dL Consult Discharge Plan - Plan Instructions: Heart Failure (GEN) Referrals: Christi Balderrama MD [Primary Care Provider] - <Victorino Beckett - Last Filed: 06/04/16 10:58> Date of Encounter: 06/04/16 - Constitutional Vitals: Temp Pulse Resp BP Pulse Ox 98.5 F 74 18 102/69 91 06/04/16 06:56 06/04/16 06:56 06/04/16 06:56 06/04/16 07:45 06/04/16 06:56 Internal Medicine: Result - Labs CBC & Chem 7: 06/04/16 05:12 06/04/16 05:12 Labs: Short CBC 06/04/16 Range/Units 05:12 WBC 11.1 (4.3-11.1) K/mcL Hgb 7.5 L (12.9-16.9) g/dL Hct 26.0 L (37.5-50.1) % Plt Count 309 (140-400) K/mcL Neutrophils # 6.5 (1.6-8.9) K/mcL BMP 06/04/16 05:12 Sodium 132 L Potassium 4.0 Chloride 93 L Carbon Dioxide 33 H BUN 18 Creatinine 0.67 L Glucose 100 H Calcium 9.0 Liver Function 06/04/16 Range/Units 05:12 Total Bilirubin 0.4 (0.2-1.2) mg/dL Direct Bilirubin 0.1 (0.0-0.5) mg/dL - Attending Attestation I examined this patient and my medical decision-making was reviewed with the BASIC COMBATANT SWIMMER/PA/Advanced Practice Nurse/Resident Physician. I agree with the documented findings, disposition and treatment plan as described except to the extent set forth below. Continue diuretics, possible d/c tomorrow. client services representative.
[2016-06-04] MEDS ORDERED: MOM Conc 10 ML UD.LIQ PO PRN (09:03)
[2016-06-04] MEDS ORDERED: Acetaminophen 325 MG TABLET PO PRN (20:08)
[2016-06-05 04:09] LABS: Immature Granulocytes % 0.3 % (0-4)
[2016-06-05 04:10] LABS: Basophils % 0.5 %; Eosinophils # 0.8 K/mcL (0.0-0.6); Eosinophils % 10.5 %; Hematocrit 27.8 % (37.5-50.1); Hemoglobin 7.8 g/dL (12.9-16.9); Lymphocytes # 1.5 K/mcL (0.6-4.6); Lymphocytes % 19.1 %; Mean Corpuscular HGB Conc 28.1 g/dL (31.6-35.5); Mean Corpuscular Hemoglobin 21.4 pg (28.0-33.3); Mean Corpuscular Volume 76.4 fL (83.0-100.0); Mean Platelet Volume 8.4 fL (9.4-12.4); Neutrophils # 4.4 K/mcL (1.6-8.9); Platelet Count 310 K/mcL (140-400); Red Blood Count 3.64 M/mcL (4.19-5.50); Red Cell Distribution Width 18.6 % (11.5-14.5); Segmented Neutrophils % 56.6 %
[2016-06-05 04:14] LABS: BUN/Creatinine Ratio 23 (6-26); Blood Urea Nitrogen 15 mg/dL (8-26); Calcium 9.1 mg/dL (8.6-10.8); Carbon Dioxide 37 mEq/L (19-29); Chloride 93 mEq/L (98-109); Glucose 109 mg/dL (70-99); Magnesium 2.3 mg/dL (1.6-2.6); Osmolality,Calculated 279 (280-300); Potassium 4.4 mEq/L (3.5-4.5); Sodium 134 mEq/L (136-145); eGFR For African Americans > 60 (> 60); eGFR For Non-African Americans > 60 (> 60)
[2016-06-05 04:47] LABS: Hypochromasia Present (Not Present)
[2016-06-05 04:48] LABS: Anisocytosis 1+ (Not Present)
[2016-06-05] MEDS: *HR* Heparin 5,000 UNIT/ML VIAL SQ SCH ×3 (05:39→21:18)
[2016-06-05] MEDS: Cholecalciferol (D-3) 1,000 UNIT TABLET PO SCH (08:50)
[2016-06-05] MEDS: amLODIPine 5 MG TABLET PO SCH (08:50)
[2016-06-05] MEDS: hydrOXYzine pamoate 25 MG CAPSULE PO SCH ×3 (08:51→21:18)
[2016-06-05] MEDS: Furosemide 40 MG/4 ML VIAL IVP SCH (08:51)
--- NOTE | 2016-06-05 10:23 | Internal Med Progress Note ---
<Venkat Shukla Saurav - Last Filed: 06/05/16 14:23> Date of Encounter: 06/05/16 Time of Encounter: 10:22 - Assessment and plan (1) Diastolic CHF, acute on chronic Current Visit: Yes Status: Acute Assessment and plan: mild left ventricular diastolic dysfunction with last echocardiogram completed 01/11/2016. - Fluid balance : -1532 mL's Plan: - Switched to 40 mg by mouth Lasix twice a day. - 1500 mL fluid restriction - Cardiac diet - Daily weights -Strict intake and output monitoring -continue with antihypertensives- currently at goal. (2) Iron deficiency anemia Current Visit: Yes Status: Acute Assessment and plan: Mr. potter 65-year-old male with known history of iron deficiency anemia with recent workup with colonoscopy and endoscopy in March. No source of bleeding identified at this time. He received 1 units PRBCs since admission hemoglobin is currently stable at 7.8. Patient will receive 1 unit PRBC, will schedule gastroenterology follow-up as the patient had positives stool occult, he is without diarrhea, melena or hematochezia. Hemoglobin is stable, Pill endoscopy would likely be beneficial. - This plan has been discussed with Mr. Glover - Received one unit at the begining of his inpatient stay and IV iron. Plan: - One unit PRBCs - Follow up with GI for further work up of anemia. - Continue PO iron. Qualifiers: Iron deficiency anemia type: unspecified iron deficiency Qualified Code(s) : D50.9 - Iron deficiency anemia, unspecified (3) Obesity Current Visit: Yes Status: Chronic Assessment and plan: Morbid obesity with a BMI of 46.5 obesity is likely contributing to chronic medical conditions including hypertension, diastolic heart failure. Patient will benefit from diet and exercise to reduce Risk of further medical complications. Qualifiers: Obesity type: due to excess calories Obesity severity: morbid Qualified Code(s): E66.01 - Morbid (severe) obesity due to excess calories (4) Hyponatremia Current Visit: No Status: Acute Assessment and plan: hypervolemic hyponatremia. Remains asymptomatic at Na+ 129. Serum osmol improving. Plan: - Continue with diuresis (5) Tobacco abuse Current Visit: No Status: Acute Assessment and plan: Former smoker. (6) DVT prophylaxis Current Visit: No Status: Acute Assessment and plan: Subcutaneous heparin 5000 units every 8 hours - Subjective Interval history: Mr. [place] 65-year-old male was seen and evaluated patient bedside this morning. He is doing well sitting up at bedside. He said that he feels that he has lost a lot of fluid waves in his legs are feeling better. He feels that he can breathe better he denies any discomforts pains concerns at this time. He does speak of difficulty at home with ambulation and is agreeable to short-term rehabilitation is necessary. He is agreeable to another unit of PRBC transfusion. - Constitutional Vitals: Temp Pulse Resp BP Pulse Ox 97.4 F L 78 20 138/63 98 06/05/16 07:23 06/05/16 07:23 06/05/16 07:23 06/05/16 07:23 06/05/16 09:54 General appearance: Present: cooperative, A&O X 3, morbidly obese, pleasant - Head Head exam: Present: atraumatic, normocephalic - Eye Eye exam: Present: PERRL, conjuntiva pink, sclera anicteric Pupils: Present: PERRL - ENT ENT exam: Present: mucous membranes moist - Neck Neck exam general surgery: Present: supple, trachea midline. Absent: lymphadenopathy - Respiratory Additional comments: Minor crackles appreciated bilateral lower lung bases, clear to auscultation all other lung cary. - Cardiovascular Cardiovascular exam: Present: RRR, +S1, +S2. Absent: diastolic murmur, gallop, rubs, systolic murmur - GI/Abdominal GI/Abdominal exam: Present: normal bowel sounds, soft, no peritoneal signs. Absent: distended, tenderness - Extremities Exam Extremities exam: Present: pedal edema (1+ pitting edema bilateral lower extremities.), warm, radial pulses palpable and symetrical. Absent: calf tenderness, cyanotic - Neurological Exam Neurological exam: Present: CN II-XII intact, oriented X3, no focal deficits. Absent: pronater drift, facial droop, speech deficit - Psychiatric Psychiatric exam: Present: normal affect, normal mood Internal Medicine: Result - Labs CBC & Chem 7: 06/05/16 03:41 06/05/16 03:41 Labs: Short CBC 06/05/16 Range/Units 03:41 WBC 7.8 (4.3-11.1) K/mcL Hgb 7.8 L (12.9-16.9) g/dL Hct 27.8 L (37.5-50.1) % Plt Count 310 (140-400) K/mcL Neutrophils # 4.4 (1.6-8.9) K/mcL BMP 06/05/16 03:41 Sodium 134 L Potassium 4.4 Chloride 93 L Carbon Dioxide 37 H BUN 15 Creatinine 0.65 L Glucose 109 H Calcium 9.1 Consult Discharge Plan - Plan Instructions: Heart Failure (GEN) Referrals: Christi Balderrama MD [Primary Care Provider] - 06/13/16 10:30 am (Please follow up as schedule...) <Victorino Beckett - Last Filed: 06/05/16 16:12> Date of Encounter: 06/05/16 - Constitutional Vitals: Temp Pulse Resp BP Pulse Ox 97.4 F L 96 20 115/60 100 06/05/16 15:56 06/05/16 15:56 06/05/16 15:56 06/05/16 15:56 06/05/16 15:56 Internal Medicine: Result - Labs CBC & Chem 7: 06/05/16 03:41 06/05/16 03:41 - Attending Attestation I examined this patient and my medical decision-making was reviewed with the SEWAGE PLANT ATTENDANT/PA/Advanced Practice Nurse/Resident Physician. I agree with the documented findings, disposition and treatment plan as described except to the extent set forth below. Agree with Dr. Shukla, one unit of prbc, recheck hb tomorrow in am. GI workup as outpatient. D/C to ECF when stable.
[2016-06-05] MEDS ORDERED: Furosemide 20 MG/2 ML VIAL IVP ONE (10:24)
[2016-06-05] MEDS ORDERED: 0.9 % Sodium Chloride 250 ML ONE (11:05)
[2016-06-05] MEDS: Furosemide 40 MG TABLET PO SCH (17:05)
[2016-06-06 04:03] LABS: Basophils % 0.3 %; Eosinophils # 0.9 K/mcL (0.0-0.6); Eosinophils % 9.3 %; Hematocrit 28.9 % (37.5-50.1); Hemoglobin 8.5 g/dL (12.9-16.9); Immature Granulocytes % 0.3 % (0-4); Lymphocytes # 1.7 K/mcL (0.6-4.6); Lymphocytes % 18.2 %; Mean Corpuscular HGB Conc 29.4 g/dL (31.6-35.5); Mean Corpuscular Hemoglobin 22.4 pg (28.0-33.3); Mean Corpuscular Volume 76.1 fL (83.0-100.0); Mean Platelet Volume 8.7 fL (9.4-12.4); Monocytes # 1.2 K/mcL (0.0-1.3); Monocytes % 12.8 %; Neutrophils # 5.6 K/mcL (1.6-8.9); Platelet Count 315 K/mcL (140-400); Red Cell Distribution Width 19.8 % (11.5-14.5); Segmented Neutrophils % 59.1 %
[2016-06-06 04:27] LABS: Alanine Aminotransferase 9 Units/L (0-55); Albumin 3.2 g/dL (3.5-5.0); Albumin/Globulin Ratio 0.9 (1.1-2.2); Alkaline Phosphatase 91 Units/L (38-126); Aspartate Amino Transferase 17 Units/L (5-34); BUN/Creatinine Ratio 22 (6-26); Bilirubin,Total 0.5 mg/dL (0.2-1.2); Blood Urea Nitrogen 15 mg/dL (8-26); Calcium 9.2 mg/dL (8.6-10.8); Carbon Dioxide 35 mEq/L (19-29); Chloride 91 mEq/L (98-109); Globulin 3.6 g/dL (2.4-3.5); Glucose 92 mg/dL (70-99); Osmolality,Calculated 276 (280-300); Potassium 4.4 mEq/L (3.5-4.5); Sodium 133 mEq/L (136-145); Total Protein 6.8 g/dL (6.0-8.3); eGFR For African Americans > 60 (> 60); eGFR For Non-African Americans > 60 (> 60)
[2016-06-06] MEDS: *HR* Heparin 5,000 UNIT/ML VIAL SQ SCH ×3 (05:13→20:30)
[2016-06-06] MEDS: amLODIPine 5 MG TABLET PO SCH (08:59)
[2016-06-06] MEDS: Furosemide 40 MG TABLET PO SCH ×2 (08:59→16:05)
[2016-06-06] MEDS: Cholecalciferol (D-3) 1,000 UNIT TABLET PO SCH (08:59)
[2016-06-06] MEDS: hydrOXYzine pamoate 25 MG CAPSULE PO SCH ×3 (08:59→20:30)
--- NOTE | 2016-06-06 09:39 | Internal Med Progress Note ---
Date of Encounter: 06/06/16 Time of Encounter: 09:37 - Assessment and plan (1) Diastolic CHF, acute on chronic Current Visit: Yes Status: Acute Assessment and plan: CHFpEF with mild LVDD ECHO done 12/2015, not repeated Cause of fluid overload this time possibly from fluid indiscretion I/O negative 2L Continue Lasix 40mg po bid Continue daily weights, monitor I/O, 1,500 mls fluid restriction Continue other current management (2) Hypertension Current Visit: Yes Status: Chronic Assessment and plan: Controlled on atenolol and lasix, continue same Qualifiers: Hypertension type: essential hypertension Qualified Code(s): I10 - Essential (primary) hypertension (3) Hyponatremia Current Visit: Yes Status: Chronic Assessment and plan: Chronic asymptomatic hypoosmolar hypervolemic hyponatremia Continue to monitor (4) Iron deficiency anemia Current Visit: Yes Status: Acute Assessment and plan: Chronic DONNA, recent workup with colonoscopy and endoscopy in March. No source of bleeding identified at this time. s/p 2 units RBCs FOBT positive, no obvious source of bleeding Continue oral iron supplements Qualifiers: Iron deficiency anemia type: unspecified iron deficiency Qualified Code(s) : D50.9 - Iron deficiency anemia, unspecified (5) Obesity Current Visit: Yes Status: Chronic Assessment and plan: Morbid obesity with a BMI of 46.5 obesity is likely contributing to chronic medical conditions including hypertension, diastolic heart failure. Patient will benefit from diet and exercise to reduce Risk of further medical complications. Qualifiers: Obesity type: due to excess calories Obesity severity: morbid Qualified Code(s): E66.01 - Morbid (severe) obesity due to excess calories (6) Tobacco abuse Current Visit: No Status: Acute Assessment and plan: patient has history of smoking. states he has recently quit. continued smoking cessation. (7) Rash Current Visit: Yes Status: Chronic Assessment and plan: Chronic Etiology unknown Does not look infected Will need dermatology follow up on discharge (8) DVT prophylaxis Current Visit: Yes Status: Acute Assessment and plan: SQ heparin. (9) Alkalosis, metabolic Current Visit: Yes Status: Acute Assessment and plan: contraction alkalosis from diuresis. Mild and asymptomatic continue to monitor. (10) Physical deconditioning Current Visit: Yes Status: Acute Assessment and plan: For in-patient rehab PT/OT review noted - Subjective Interval history: Patient is seen at the bedside up in bed. He has been managed for fluid overload secondary to acute on chronic diastolic CHF: Symptomatic anemia status post 2 units of RBCs, chronic hypoosmolar hyponatremia, and morbid obesity. He denies new complaints. Per OT/PT review, patient qualifies for ECF and is awaiting placement He has chronic iron defficiency anemia with negative endoscopy/colonoscopy 2016 He also has a diffuse chronic rash on the back - Constitutional Vitals: Temp Pulse Resp BP Pulse Ox 97.6 F 73 18 106/56 96 06/06/16 07:43 06/06/16 07:43 06/06/16 07:43 06/06/16 07:43 06/06/16 07:43 General appearance: Present: cooperative, A&O X 3, morbidly obese, pleasant, no acute distress - Head Head exam: Present: atraumatic, normocephalic - Eye Eye exam: Present: PERRL, conjuntiva pink, sclera anicteric - ENT ENT exam: Present: mucous membranes moist - Neck Neck exam general surgery: Present: normal inspection - Respiratory Additional comments: Bibasilar crackles, no wheezing, no rhonchi. - Cardiovascular Cardiovascular exam: Present: RRR, +S1, +S2. Absent: JVD - GI/Abdominal Additional comments: Abdomen is obese, nontender, respiration, no palpable organomegaly, bowel sounds are present in all quadrants. - Extremities Exam Additional comments: 2+ pitting edema bilaterally up to the knees. No ulcers or wounds. - Back Exam Additional comments: Diffuse widespread papular rash, weeping, pruritic, no pustules. - Neurological Exam Neurological exam: Present: alert, CN II-XII intact, oriented X3, no focal deficits. Absent: pronater drift, facial droop, speech deficit - Skin Skin exam: Present: rash Internal Medicine: Result - Labs CBC & Chem 7: 06/06/16 03:23 06/06/16 03:23 Labs: Short CBC 06/06/16 Range/Units 03:23 WBC 9.6 (4.3-11.1) K/mcL Hgb 8.5 L (12.9-16.9) g/dL Hct 28.9 L (37.5-50.1) % Plt Count 315 (140-400) K/mcL Neutrophils # 5.6 (1.6-8.9) K/mcL BMP 06/06/16 03:23 Sodium 133 L Potassium 4.4 Chloride 91 L Carbon Dioxide 35 H BUN 15 Creatinine 0.69 L Glucose 92 Calcium 9.2 Liver Function 06/06/16 Range/Units 03:23 Total Bilirubin 0.5 (0.2-1.2) mg/dL AST 17 (5-34) Units/L ALT 9 (0-55) Units/L Alkaline Phosphatase 91 (38-126) Units/L Albumin 3.2 L (3.5-5.0) g/dL Consult Discharge Plan - Plan Instructions: Heart Failure (GEN) Referrals: Christi Balderrama MD [Primary Care Provider] - 06/13/16 10:30 am (Please follow up as schedule...)
[2016-06-07 04:39] LABS: Basophils % 0.4 %; Eosinophils # 0.8 K/mcL (0.0-0.6); Eosinophils % 10.4 %; Hematocrit 29.9 % (37.5-50.1); Hemoglobin 8.8 g/dL (12.9-16.9); Immature Granulocytes % 0.1 % (0-4); Lymphocytes # 1.4 K/mcL (0.6-4.6); Lymphocytes % 17.6 %; Mean Corpuscular HGB Conc 29.4 g/dL (31.6-35.5); Mean Corpuscular Hemoglobin 22.4 pg (28.0-33.3); Mean Corpuscular Volume 76.3 fL (83.0-100.0); Mean Platelet Volume 8.5 fL (9.4-12.4); Monocytes % 12.7 %; Neutrophils # 4.6 K/mcL (1.6-8.9); Platelet Count 287 K/mcL (140-400); Red Blood Count 3.92 M/mcL (4.19-5.50); Red Cell Distribution Width 20.3 % (11.5-14.5); Segmented Neutrophils % 58.8 %
[2016-06-07 04:56] LABS: BUN/Creatinine Ratio 23 (6-26); Blood Urea Nitrogen 16 mg/dL (8-26); Calcium 9.5 mg/dL (8.6-10.8); Carbon Dioxide 37 mEq/L (19-29); Chloride 92 mEq/L (98-109); Glucose 101 mg/dL (70-99); Osmolality,Calculated 283 (280-300); Potassium 4.6 mEq/L (3.5-4.5); Sodium 136 mEq/L (136-145); eGFR For African Americans > 60 (> 60); eGFR For Non-African Americans > 60 (> 60)
[2016-06-07] MEDS: *HR* Heparin 5,000 UNIT/ML VIAL SQ SCH ×3 (06:28→21:07)
[2016-06-07] MEDS: Furosemide 40 MG TABLET PO SCH ×2 (08:48→16:12)
[2016-06-07] MEDS: hydrOXYzine pamoate 25 MG CAPSULE PO SCH ×3 (08:49→21:07)
[2016-06-07] MEDS: amLODIPine 5 MG TABLET PO SCH (08:49)
[2016-06-07] MEDS: Cholecalciferol (D-3) 1,000 UNIT TABLET PO SCH (08:49)
--- NOTE | 2016-06-07 10:23 | Internal Med Progress Note ---
Date of Encounter: 06/07/16 Time of Encounter: 10:21 - Assessment and plan (1) Diastolic CHF, acute on chronic Current Visit: Yes Status: Acute Assessment and plan: CHFpEF with mild LVDD ECHO done 12/2015, not repeated Cause of fluid overload this time possibly from fluid indiscretion I/O negative 2.8L Continue Lasix 40mg po bid Continue daily weights, monitor I/O, 1,500 mls fluid restriction Continue other current management (2) Hypertension Current Visit: Yes Status: Chronic Assessment and plan: Controlled on atenolol and lasix, continue same Qualifiers: Hypertension type: essential hypertension Qualified Code(s): I10 - Essential (primary) hypertension (3) Hyponatremia Current Visit: Yes Status: Chronic Assessment and plan: Chronic asymptomatic hypoosmolar hypervolemic hyponatremia Sodium is 136 today, improved, continue to monitor (4) Iron deficiency anemia Current Visit: Yes Status: Acute Assessment and plan: Chronic DONNA, recent workup with colonoscopy and endoscopy in March. No source of bleeding identified at this time. s/p 2 units RBCs FOBT positive, no obvious source of bleeding, for capsule endoscopy as out- patient Continue oral iron supplements Qualifiers: Iron deficiency anemia type: unspecified iron deficiency Qualified Code(s) : D50.9 - Iron deficiency anemia, unspecified (5) Obesity Current Visit: Yes Status: Chronic Assessment and plan: Morbid obesity with a BMI of 46.5 obesity is likely contributing to chronic medical conditions including hypertension, diastolic heart failure. Patient will benefit from diet and exercise to reduce Risk of further medical complications. Qualifiers: Obesity type: due to excess calories Obesity severity: morbid Qualified Code(s): E66.01 - Morbid (severe) obesity due to excess calories (6) Tobacco abuse Current Visit: No Status: Acute Assessment and plan: patient has history of smoking. states he has recently quit. continued smoking cessation. (7) Rash Current Visit: Yes Status: Chronic Assessment and plan: Chronic Etiology unknown Does not look infected Will need dermatology follow up on discharge (8) DVT prophylaxis Current Visit: Yes Status: Acute Assessment and plan: SQ heparin. (9) Alkalosis, metabolic Current Visit: Yes Status: Acute Assessment and plan: contraction alkalosis from diuresis. Mild and asymptomatic continue to monitor. (10) Physical deconditioning Current Visit: Yes Status: Acute Assessment and plan: For in-patient rehab PT/OT review noted - Subjective Interval history: Patient is seen at the bedside, sitting in chair Reports his ambulation is better and his breathing is better He is been managed for fluid overload secondary to acute on chronic diastolic CHF: Symptomatic anemia status post 2 units of RBCs, chronic hypoosmolar hyponatremia, and morbid obesity. He denies new complaints. Awaiting SNF/ECF placement Hb and chem is stable He has chronic iron deficiency anemia with negative endoscopy/colonoscopy 03/2016 He also has a diffuse chronic rash on the back/neck/axilla for which he has an appointment with dermatology in a week - Constitutional Vitals: Temp Pulse Resp BP Pulse Ox 98.3 F 70 17 101/57 94 06/07/16 07:34 06/07/16 07:34 06/07/16 07:34 06/07/16 07:34 06/07/16 07:34 General appearance: Present: cooperative, A&O X 3, morbidly obese, pleasant, no acute distress - Head Head exam: Present: atraumatic, normocephalic - Eye Eye exam: Present: PERRL, conjuntiva pink, sclera anicteric Pupils: Present: PERRL - Neck Neck exam general surgery: Present: supple, trachea midline. Absent: lymphadenopathy - Respiratory Respiratory exam: Present: wheezes Additional comments: Bibasilar crackles, no wheezing, no rhonchi. - Cardiovascular Cardiovascular exam: Present: RRR, +S1, +S2. Absent: diastolic murmur, gallop, JVD, rubs, systolic murmur - GI/Abdominal GI/Abdominal exam: Present: normal bowel sounds, soft, no peritoneal signs. Absent: distended, tenderness - Extremities Exam Extremities exam: Present: warm, radial pulses palpable and symetrical. Absent : calf tenderness, cyanotic, pedal edema - Back Exam Additional comments: Diffuse widespread papular rash, weeping, pruritic, no pustules. - Neurological Exam Neurological exam: Present: alert, CN II-XII intact, oriented X3, no focal deficits. Absent: pronater drift, facial droop, speech deficit - Skin Skin exam: Present: dry, rash Internal Medicine: Result - Labs CBC & Chem 7: 06/07/16 03:59 06/07/16 03:59 Labs: Short CBC 06/07/16 Range/Units 03:59 WBC 7.9 (4.3-11.1) K/mcL Hgb 8.8 L (12.9-16.9) g/dL Hct 29.9 L (37.5-50.1) % Plt Count 287 (140-400) K/mcL Neutrophils # 4.6 (1.6-8.9) K/mcL BMP 06/07/16 03:59 Sodium 136 Potassium 4.6 H Chloride 92 L Carbon Dioxide 37 H BUN 16 Creatinine 0.70 L Glucose 101 H Calcium 9.5 Consult Discharge Plan - Plan Instructions: Heart Failure (GEN) Referrals: Christi Balderrama MD [Primary Care Provider] - 06/13/16 10:30 am (Please follow up as schedule...)
[2016-06-07] MEDS: Nystatin OINT 15 GM TUBE TP SCH ×3 (16:11→19:52)
[2016-06-08] MEDS: *HR* Heparin 5,000 UNIT/ML VIAL SQ SCH (05:36)
--- NOTE | 2016-06-08 07:52 | Discharge Summary ---
Date of Encounter: 06/08/16 Time of Encounter: 07:51 - Discharge Diagnosis (1) Diastolic CHF, acute on chronic Priority: Primary Status: Acute (2) Hypertension Priority: Secondary Status: Chronic Qualifiers: Hypertension type: essential hypertension Qualified Code(s): I10 - Essential (primary) hypertension (3) Hyponatremia Priority: Primary Status: Chronic (4) Iron deficiency anemia Priority: Secondary Status: Chronic Qualifiers: Iron deficiency anemia type: unspecified iron deficiency Qualified Code(s) : D50.9 - Iron deficiency anemia, unspecified (5) Obesity Priority: Secondary Status: Chronic Qualifiers: Obesity type: due to excess calories Obesity severity: morbid Qualified Code(s): E66.01 - Morbid (severe) obesity due to excess calories (6) Tobacco abuse Priority: Secondary Status: Chronic (7) Rash Priority: Secondary Status: Chronic (8) DVT prophylaxis Priority: Primary Status: Acute (9) Alkalosis, metabolic Priority: Secondary Status: Acute (10) Physical deconditioning Priority: Secondary Status: Acute - Discharge Medications Prescriptions: Furosemide [Lasix] 40 mg PO BIDDIURETIC #60 tablet Nystatin OINT [Mycostatin] 1 appl TP QID #3 tube Home Medications: Amlodipine Besylate 10 mg PO DAILY 01/10/16 [History] Atenolol 100 mg PO DAILY 01/10/16 [History] Pantoprazole Sodium [Protonix] 40 mg PO DAILY 30 Days 01/14/16 [Rx] Cholecalciferol (D-3) [Vitamin D] 1,000 mg PO DAILY 04/18/16 [History] Ferrous Sulfate [Iron] 325 mg PO BID 06/01/16 [History] Hydroxyzine HCl 25 mg PO TID 06/01/16 [History] Furosemide [Lasix] 40 mg PO BIDDIURETIC #60 tablet 06/08/16 [Rx] Nystatin OINT [Mycostatin] 1 appl TP QID #3 tube 06/08/16 [Rx] Allergies/Adverse Reactions: Allergies No Known Allergies Allergy (Verified 04/18/16 11:50) Date of admission: 06/05/16 12:48 Primary care physician: Christi Balderrama, Discharging clinician: Xu Weir Anticipated date of discharge: 06/08/16 - Patient Status Disposition: Home, Self-Care Condition: Fair Functional capacity at discharge: independent ambulation Overall status at discharge: patient is back to baseline - Discharge Instructions Instructions: Heart Failure (GEN) Follow Up With: Christi Balderrama MD [Primary Care Provider] - 06/13/16 10:30 am (Please follow up as schedule...) - Diet and Activity Activity: resume usual activities as tolerated, wear oxygen at night Diet: low fat, low cholesterol, low salt diet Interval History: Mr. Glover is a 65 year old male with a history of diastolic heart failure on twice daily lasix who comes in with weight gain and worsening shortness of breath. He reports that he was in his usual state of health until about a month prior to admission when he began to have weight gain (estimated at 20LBS), progressive worsening SOB associated with dyspnea on exertion, reduced exercise tolerance, easy fatigability and reduced walking distance. He also noticed significant lower extremity swelling He has chronic respiratory failure and is on home O2 at home Physical examination was remarkable for bilateral pitting pedal edema and mild bibasialr crackles bilaterally on exam, as well as diffuse papular rash on his back and trunk. Work up on exam was signifcant for acute on chronic anemia, with a Hb o 6.8 ( baseline ~9), no leuocytosis, BNP elevated at 299, chem with hypervolemic hypo- osmlar hyponatremia, FOBT was positive, EKG and CXR were unremarkable Hospital course: He was admitted for management of acute on chronic CHFpEF possibly secondary to fluid indiscretion and worsened by acute on chronic anemia He has made significant improvement with IV diuretics, fluid restriction, transfusion with 2 units of blood, He has lost ~10kg/22 pounds since admission and has been adequately diuressed His chronic anemia was worked up by I in 03/2016 with negative EGD and colonoscopy, it is recommended that he follows up with GI for possible capsule endoscopy as he continues to be anemic, he is also started on iron replacement therapy He was physically deconditioned on admission and PT/OT recommendation was for SNF/ECF However, patient has made remarkable improvement and has been cleared for discharge home clinically and socially His back rash is chronic, and he has an appointment with dermatology in the next week for evaluation He is educated about the increase in his diuretics, and need for fluid and sodium discretion He verbalized understanding and will be making an appointment to follow up with PCP Patient has quit smoking several months ago - Time Spent with Patient Total time spent providing and/or coordinating discharge services: Greater than 30 minutes (35 minutes spent on chart review, face to face encounter, med rec and prescription as well as documentation) - Constitutional Vitals: Temp Pulse Resp BP Pulse Ox 97.9 F 73 17 115/57 95 06/08/16 06:42 06/08/16 06:42 06/08/16 06:42 06/08/16 06:42 06/08/16 06:42 General appearance: Present: cooperative, A&O X 3, morbidly obese, pleasant, no acute distress - Head Head exam: Present: atraumatic, normocephalic - Eye Eye exam: Present: PERRL, conjuntiva pink, sclera anicteric Pupils: Present: PERRL - Neck Neck exam general surgery: Present: supple, trachea midline. Absent: lymphadenopathy - Respiratory Respiratory exam: Present: CTAB. Absent: accessory muscle use, rales, rhonchi, wheezes - Cardiovascular Cardiovascular exam: Present: RRR, +S1, +S2. Absent: diastolic murmur, gallop, rubs, systolic murmur - GI/Abdominal GI/Abdominal exam: Present: normal bowel sounds, soft, no peritoneal signs. Absent: distended, tenderness - Extremities Exam Extremities exam: Present: warm, radial pulses palpable and symetrical. Absent : calf tenderness, cyanotic, pedal edema - Back Exam Additional comments: Diffuse widespread papular rash, dry and not weeping today, pruritic, no pustules. - Neurological Exam Neurological exam: Present: alert, CN II-XII intact, oriented X3, no focal deficits. Absent: pronater drift, facial droop, speech deficit - Skin Skin exam: Present: dry, intact
[2016-06-08] MEDS: Nystatin OINT 15 GM TUBE TP SCH (09:08)
[2016-06-08] MEDS: hydrOXYzine pamoate 25 MG CAPSULE PO SCH (09:10)
[2016-06-08] MEDS: Furosemide 40 MG TABLET PO SCH (09:10)
[2016-06-08] MEDS: Cholecalciferol (D-3) 1,000 UNIT TABLET PO SCH (09:10)
[2016-06-08] MEDS: amLODIPine 5 MG TABLET PO SCH (09:10)
--- NOTE | 2016-06-08 10:35 | Physician Discharge Referral ---
Home Health/Hosp Referral Info Transfer to: Home Health (Out-patient Physical and Occupational therapy) Attending Provider: Carmella Provider in Charge Post Discharge: PCP - Diagnosis (1) Diastolic CHF, acute on chronic Priority: Primary Status: Acute (2) Hypertension Priority: Secondary Status: Chronic (3) Hyponatremia Priority: Secondary Status: Chronic (4) Iron deficiency anemia Priority: Secondary Status: Chronic (5) Obesity Priority: Secondary Status: Chronic (6) Tobacco abuse Priority: Secondary Status: Resolved (7) Rash Priority: Secondary Status: Chronic (8) DVT prophylaxis Priority: Secondary Status: Acute (9) Alkalosis, metabolic Priority: Primary Status: Acute (10) Physical deconditioning Priority: Primary Status: Acute - Respiratory Orders Smoking Cessation: Smoking cessation has been advised. For more information, call the [place] [employer] Quit Line at 4-388-BASO-NOW. - Services Needed Following services are medically necessary services: Physical Therapy, Occupational Therapy Other Treatments: Out-patient physical and occupational therapy evaulation and treatment - Transfer Medications Prescriptions: Furosemide [Lasix] 40 mg PO BIDDIURETIC #60 tablet Nystatin OINT [Mycostatin] 1 appl TP QID #3 tube Home Medications: Amlodipine Besylate 10 mg PO DAILY 01/10/16 [History] Atenolol 100 mg PO DAILY 01/10/16 [History] Pantoprazole Sodium [Protonix] 40 mg PO DAILY 30 Days 01/14/16 [Rx] Cholecalciferol (D-3) [Vitamin D] 1,000 mg PO DAILY 04/18/16 [History] Ferrous Sulfate [Iron] 325 mg PO BID 06/01/16 [History] Hydroxyzine HCl 25 mg PO TID 06/01/16 [History] Furosemide [Lasix] 40 mg PO BIDDIURETIC #60 tablet 06/08/16 [Rx] Nystatin OINT [Mycostatin] 1 appl TP QID #3 tube 06/08/16 [Rx] Allergies/Adverse Reactions: Allergies No Known Allergies Allergy (Verified 04/18/16 11:50) Certification: Further, I certify that my clinical findings support that this patient is homebound (i.e. absences from home require considerable and taxing effort and are for medical reasons or latter-day services or infrequently or short duration when for other reasons) because: Homebound Reason: Patient requires assistance of a person or device to safely leave home Attestation: My signature below is to certify that this patient is under my care and that I, or nurse practitioner, or a physician's retail assistant manager working with me, has a face-to -face encounter with this patient.
[2016-06-08 10:53] VITALS: BP 104/65
== END 2016-06-08 12:45 | disposition home or self-care (01) | DRG 291 ==
LOC: EMEROO 11:19 → 2ANU 11:19 → SUATTDRO 06-05 12:48 → 2ANU 06-06 23:20
PROVIDERS: ADMIT Internal Medicine Endocrinology, Diabetes & Metabolism; ATTEND Internal Medicine

== ENCOUNTER 2018-11-13 11:40 | Inpatient (IN) ==
[2018-11-13] MEDS ORDERED: Albuterol 2.5 MG/3 ML NEBULIZER IH ONE (12:22)
[2018-11-13] MEDS ORDERED: CeFAZolin Syr 2,000MG/20 ML 2,000 MG/20 ML SYRINGE IVPB ONE (12:22)
--- NOTE | 2018-11-13 12:23 | Anesthesia Evaluation PreOp ---
Date of Encounter: 11/13/18 Time of Encounter: 12:21 - Past History Planned Operation: Robotic R-TKR Cardiac History: CHF (related to HypoNatremia 05/2016), HTN, Hyperlipidemia Pulmonary History: Former smoker, Smoker (quit 2014), COPD (Home O2 at [facility]), ZOË Dx ([place] oxygen desaturation) Other Medical History: Renal (CRI/GFR = 43), GERD, Other (MO/BMI = 40.2) Anesthesia History: No Prior Anesthetic Complications, Past Anesthesia (Appy, Skin graft (as baby), L-TKR 10/15/2014, Femur repair, T&A) Alcohol Use: none Drug use: none Medications and Allergies Amlodipine Besylate 10 mg PO DAILY 01/10/16 [History] Atenolol 100 mg PO DAILY 01/10/16 [History] Pantoprazole Sodium [Protonix] 40 mg PO DAILY 30 Days tablet. 01/14/16 [Rx] Cholecalciferol (D-3) [Vitamin D] 1,000 mg PO DAILY 04/18/16 [History] Ferrous Sulfate [Iron] 325 mg PO BID 06/01/16 [History] hydrOXYzine HCl [Hydroxyzine HCl] 25 mg PO TID 06/01/16 [History] Furosemide [Lasix] 40 mg PO BIDDIURETIC #60 tablet 06/08/16 [Rx] Acetaminophen [Non-Aspirin Extra Strength] 500 mg PO Q6H PRN 7 Days #28 tablet 11/13/18 [Rx] Docusate Sodium [Colace] 100 mg PO BID 5 Days #10 capsule 11/13/18 [Rx] OxyCODONE Immed Rel [Roxicodone 5 MG] 5 mg PO Q6HR PRN 5 Days #20 tablet 11/13/18 [Rx] Allergy/AdvReac Type Severity Reaction Status Date / Time No Known Allergies Allergy Verified 11/05/18 13:47 - Meds/Allergy Pre-op Review Medications Reviewed: Yes Allergies Reviewed: Yes Beta Blockers on Current Med List: Yes If Beta Blockers taken, Date/Time (Last Dose taken): Atenolol 11/13/2018 @0900 Anesthesia Results - Labs Laboratory Tests 10/24/18 10/24/18 10/24/18 13:43 13:43 13:43 WBC 10.1 Hgb 12.8 L Hct 38.6 Plt Count 278 PT 12.0 INR 1.1 APTT 32.7 Sodium 134 L Potassium 3.9 Chloride 94 L Carbon Dioxide 30 H BUN 30 H Creatinine 1.62 H Est GFR (Non-Af Amer) 43 L Glucose 99 Calcium 9.5 - Imaging EKG: report reviewed (52bpm - SINUS BRADYCARDIA Electronically Signed On 11-06-2018 17:53:27 EDT by Gael Nguyen) Additional studies: ECHO 01/11/2016 Impressions: Technically sub-optimal due to poor echocardiographic windows. Echo contrast was used. Normal LV chamber size, wall thickness, and systolic function. LVEF 60-65%. Mild left ventricular diastolic dysfunction. Normal right ventricular structure and function. No significant valvular dysfunction. Unable to estimate RVSP due to lack of TR jet. Color doppler demonstrates possible [id number] shunting across the interatrial septum. Recommend repeating a limited study with agitated saline contrast to further evaluate. Left Ventricular Wall Motion: Rest Echo Findings All wall segments showed normal motion. Anesthesia Exam O2 Sat Height 1.63 m Weight 106.141 kg O2 Sat by Pulse Oximetry 95 Vital Signs Temp Pulse Resp BP Pulse Ox 97.5 F L 54 18 110/71 95 11/13/18 12:01 11/13/18 12:01 11/13/18 12:01 11/13/18 12:01 11/13/18 12:01 Height: 5'4" Weight: 234# BMI = 40.2 NPO (# of Hours): MNoc - HEENT Pupil (Motor): Pupils equal, EOMI Mallampati: II Teeth: Missing, Edentulous, Poor dentition Denture Type: Upper: Complete, Lower: Complete, Partial Oral Opening: Greater than 3 - CREOSOTING ENGINEER LOC: Oriented CREOSOTING ENGINEER Motor: Normal RUE, Normal LUE, Normal RLE, Normal LLE, Normal Face CREOSOTING ENGINEER Sensory: Normal: RUE, LUE, RLE, LLE, Face - Cardiac Rhythm: Regular Murmur: None - Pulmonary Breath Sounds: bilateral Clear Respiratory Effort: Symmetrical Anesthesia Assess/Plan ASA Score: 3 (MO/BMI = 40, ZOË, HTN, Chol) Level of consciousness: Cooperative, Oriented, Tranquil Anesthetic Plan: Regional Nerve Block, MAC, Spinal Regional Nerve Block Plan: Adductor canal Monitoring Plan: Standard Monitors Recovery Plan: Other Anes Supervising Prov Stmt: Pt seen/evaluated, R&B discussed, questions answered and consent obtained - MD Little
--- NOTE | 2018-11-13 12:27 | Discharge Summary ---
<Gia Sadler - Last Filed: 11/13/18 12:25> Date of Encounter: 11/13/18 - Hospital Course Hospital course: Mr. Glover is a 67 year old male - Time Spent with Patient Total time spent providing and/or coordinating discharge services: - Discharge Medications Prescriptions: New Docusate Sodium [Colace] 100 mg PO BID 5 Days #10 capsule Acetaminophen [Non-Aspirin Extra Strength] 500 mg PO Q6H PRN 7 Days #28 tablet PRN Reason: Mild To Moderate Pain OxyCODONE Immed Rel [Roxicodone 5 MG] 5 mg PO Q6HR PRN 5 Days #20 tablet PRN Reason: Severe Pain Aspirin Enteric Coated [Aspirin EC] 325 mg PO BID #20 tablet. Continued Atenolol 100 mg PO DAILY Pantoprazole Sodium [Protonix] 40 mg PO DAILY 30 Days tablet. Cholecalciferol (D-3) [Vitamin D] 1,000 units PO DAILY hydrOXYzine HCl [Hydroxyzine HCl] 25 mg PO TID PRN PRN Reason: Itching Ferrous Sulfate [Iron] 325 mg PO BID Furosemide [Lasix] 40 mg PO BIDDIURETIC #60 tablet Amlodipine Besylate 10 mg PO DAILY Ascorbic Acid [Vitamin C] 500 mg PO DAILY Atorvastatin [Lipitor] 10 mg PO HS Citalopram Hydrobromide [Citalopram HBr] 40 mg PO DAILY Multivitamin [Daily Multiple Vitamin] 1 tab PO DAILY Sennosides [Senna] 17.2 mg PO HS PRN PRN Reason: Constipation Home Medications: Atenolol 100 mg PO DAILY 01/10/16 [History] Pantoprazole Sodium [Protonix] 40 mg PO DAILY 30 Days tablet. 01/14/16 [Rx] Cholecalciferol (D-3) [Vitamin D] 1,000 units PO DAILY 04/18/16 [History] Ferrous Sulfate [Iron] 325 mg PO BID 06/01/16 [History] hydrOXYzine HCl [Hydroxyzine HCl] 25 mg PO TID PRN 06/01/16 [History] Furosemide [Lasix] 40 mg PO BIDDIURETIC #60 tablet 06/08/16 [Rx] Acetaminophen [Non-Aspirin Extra Strength] 500 mg PO Q6H PRN 7 Days #28 tablet 11/13/18 [Rx] Docusate Sodium [Colace] 100 mg PO BID 5 Days #10 capsule 11/13/18 [Rx] OxyCODONE Immed Rel [Roxicodone 5 MG] 5 mg PO Q6HR PRN 5 Days #20 tablet 11/13/18 [Rx] Amlodipine Besylate 10 mg PO DAILY 11/14/18 [History] Ascorbic Acid [Vitamin C] 500 mg PO DAILY 11/14/18 [History] Atorvastatin [Lipitor] 10 mg PO HS 11/14/18 [History] Citalopram Hydrobromide [Citalopram HBr] 40 mg PO DAILY 11/14/18 [History] Multivitamin [Daily Multiple Vitamin] 1 tab PO DAILY 11/14/18 [History] Sennosides [Senna] 17.2 mg PO HS PRN 11/14/18 [History] Aspirin Enteric Coated [Aspirin EC] 325 mg PO BID #20 tablet. 11/18/18 [Rx] Allergies/Adverse Reactions: Allergy/AdvReac Type Severity Reaction Status Date / Time No Known Allergies Allergy Verified 11/14/18 21:56 Primary care physician: Venkat Chamberlain MD - Patient Status Disposition: Transfer SNF Condition: Good - Discharge Instructions Follow Up With: Venkat Chamberlain MD [Primary Care Provider] - <Gia Cleaning - Last Filed: 11/18/18 13:33> Date of Encounter: 11/18/18 Time of Encounter: 11:40 - Discharge Diagnosis (1) Status post total right knee replacement Priority: Primary Status: Acute (2) Arthritis of knee Priority: Primary Status: Chronic (3) Acute blood loss anemia Priority: Secondary Status: Acute (4) Hyperlipidemia Priority: Secondary Status: Chronic Qualifiers: Hyperlipidemia type: unspecified Qualified Code(s): E78.5 - Hyperlipidemia, unspecified (5) Hypertension Priority: Secondary Status: Chronic Qualifiers: Hypertension type: essential hypertension Qualified Code(s): I10 - Essential (primary) hypertension (6) Nocturnal oxygen desaturation Priority: Secondary Status: Chronic (7) Obesity (BMI 30-39.9) Priority: Secondary Status: Chronic (8) CHF (congestive heart failure) Priority: Secondary Status: Chronic Qualifiers: Heart failure type: unspecified Heart failure chronicity: chronic Qualified Code(s): I50.9 - Heart failure, unspecified - Hospital Course Hospital course: Mr. Glover is a 67 year old male status post right TKR 11/13 with medical history of OA, CHF, HTN, HLD, obesity, noctural O2 desaturation with home O2 use at night. Postoperative blood loss anemia monitored, asymptomatic and stable with no need for transfusion. CXR was ordered due to cough but this was negative for any acute abnormalities but patient is former smoker and respiratory panel was negative as well. No cough on day of discharge. He participated in therapy. Stable for discharge at this time. He will follow up in [facility] office next week for reevaluation. PCR - POD#5 s/p right TKR 11/13 Patient seen at bedside, without complaints. A&O x 3. No cough today Afebrile, vital signs stable. Dressings c/d/i, no calf tenderness to palpation, good dorsiflexion of foot, sensation intact distally. Labs reviewed. H/H - 8.6/26.8 stable, asymptomatic Pain control: adequate Participating in PT. CXR neg, respiratory panel neg All questions and concerns addressed. Educated on use of incentive spirometer. Encouraged ambulation and proper hydration. Patient educated on post-operative restrictions and post-operative care. Assessment and plan: Continue with postoperative care Discharge plan: ECF, discharge today. - Time Spent with Patient Total time spent providing and/or coordinating discharge services: Date of admission: 11/14/18 11:30 Primary care physician: Venkat Chamberlain MD Consults: 11/13/18 18:16 Consult to Nutrition [CONS] Routine Comment: Consulting Provider: NUTRITION Reason for Dietary Consult: Other Other:: Proper nutrition to facilitate wound healing Consult to Occupational Therapy [CONS] Routine Comment: Evaluate, develop and implement POC Reason for Consult: post knee surgery Does patient have active BEDREST order?: No Is patient medically & hemodynamically stable?: Yes Consult to Orthopedic Navigator [CONS] [CONS] Routine Consult to Physical Therapy [CONS] Routine Comment: Evaluate, develop and impliment POC Reason for Consult: post knee surgery Does patient have active BEDREST order?: No Is patient medically & hemodynamically stable?: Yes Consult to Assistant Director Of Public Works [CONS] Routine Reason for SW Consult: post op joint replacement RT Post Op Consult [CONS] Routine Discharging clinician: Yoni Stevens Anticipated date of discharge: 11/18/18 Labs on day of discharge: Labs from last 24 hours 11/18/18 11/18/18 06:32 06:32 WBC 10.1 RBC 2.95 L Hgb 8.6 L Hct 26.8 L MCV 90.8 MCH 29.2 MCHC 32.1 RDW 13.0 Plt Count 230 MPV 9.7 Immature Gran % 0.4 Seg Neutrophils % 65.9 Lymphocytes % 19.9 Monocytes % 11.1 Eosinophils % 2.5 Basophils % 0.2 Neutrophils # 6.7 Lymphocytes # 2.0 Monocytes # 1.1 Eosinophils # 0.3 Basophils # 0.0 Sodium 138 Potassium 4.2 Chloride 102 Carbon Dioxide 31 H BUN 17 Creatinine 0.74 Est GFR ( Amer) > 60 Est GFR (Non-Af Amer) > 60 BUN/Creatinine Ratio 23 Glucose 109 H Calculated Osmolality 288 Calcium 9.0 - Impressions ITS Impressions Knee X-Ray 11/13/18 17:18 IMPRESSION: Total knee arthropasty without acute hardware complication. D/ / Walker Anne MD / Walker Anne MD Interpreting Provider: Walker Anne MD Chest X-Ray 11/15/18 11:37 IMPRESSION: No acute process. Mild cardiomegaly. New right Bochdalek hernia. Small hiatal hernia. D/ / 11/15/2018 11:45:10 Jack Talley MD / rosie Interpreting Provider: Jack Talley MD - Patient Status Functional capacity at discharge: uses cane/walker Overall status at discharge: patient is progressing back to baseline - Diet and Activity Activity: ambulate only with your walker, as per physical therapy Diet: advance to your usual diet
[2018-11-13] MEDS ORDERED: Ringers Solution, Lactated 1,000 ML IVC SCH (12:30)
[2018-11-13] MEDS ORDERED: Famotidine 20 MG/2 ML VIAL IVP ONE (12:39)
[2018-11-13] MEDS ORDERED: *HR* HYDROmorphone 2 MG TABLET PO PRN (12:40)
[2018-11-13] MEDS ORDERED: *HR* HYDROmorphone (PF) 1 MG/ML SYRINGE IVP PRN (12:40)
[2018-11-13] MEDS ORDERED: *HR* Promethazine 25 MG/ML VIAL IVP PRN ×2 (12:40→18:16)
[2018-11-13] MEDS ORDERED: *HR* Labetalol 20 MG/4 ML SYRINGE IVP PRN (12:40)
[2018-11-13] MEDS ORDERED: Acetaminophen IV 1,000 MG/100 ML INFUS..BTL IVPB ONE (12:40)
[2018-11-13] MEDS ORDERED: *HR* OxyCODONE Immed Rel 5 MG TABLET PO PRN ×2 (12:40→22:48)
--- NOTE | 2018-11-13 13:09 | History & Physical Report ---
Date of Encounter: 11/13/18 Time of Encounter: 13:09 24 Hour HP Update - Instructions Instructions: If the History and Physical is less than 30 days old and was completed prior to A.M. admission and or procedure and has NOT been updated on calendar day of procedure please complete this update prior to performing procedure. - Update Patient reports changes in Medical Condition: No Changes in examination, assessment, or condition: No Changes in Medication: No Preop tests/diagnostics Reviewed: Yes Surgery Remains Indicated: Yes Consent for Planned Operative Procedure(s) Verified: Yes - Pre-Operative Checklist Preoperative Checklist Indicated: No Prophylactic Antibiotic Ordered: Yes Is VTE Prophylaxis Indicated?: Yes
[2018-11-13] MEDS ORDERED: ROPIVACAINE/PF/NS 0.25% 1 EACH SYRINGE INTRAART ONE (13:13)
[2018-11-13] MEDS ORDERED: *HR* Midazolam HCl 2 MG/2 ML VIAL ONE (13:34)
[2018-11-13] MEDS ORDERED: EPHEDrine 50 MG/ML VIAL ONE (13:52)
[2018-11-13] MEDS ORDERED: Total Joint Mixture (50 ml) IR ONE (14:05)
[2018-11-13] MEDS ORDERED: Lidocaine -MPF 2% 2 ML VIAL ONE (14:13)
[2018-11-13] MEDS ORDERED: *HR* Propofol 200 MG/20 ML VIAL IVP ONE (14:13)
--- NOTE | 2018-11-13 14:20 | Anesthesia Procedures ---
Date of Encounter: 11/13/18 Time of Encounter: 14:00 Procedures: Anesthesia - Epidural/Spinal Patient ID/Chart reviewed: Yes Sedation: Versed (mg): 1 Amount of Local Anesthetic used: 3 Interspace Used: L4-L5 Blood: No CSF: Yes Paresthesia: No Spinal Needle Gauge: 25 (pencan) Spinal Dose: 1.3ml of 0.75% bupivacaine Procedure: spinal under sterile technique performed by Wesley CLARK under supervision of Dr. Zuniga - Nerve Block Procedure Date: 11/13/18 Time: 14:20 Allergies/Adv Reactions: Allergy/AdvReac Type Severity Reaction Status Date / Time No Known Allergies Allergy Verified 11/05/18 13:47 Surgical Procedure: right total knee arthroplasty Checklist: Correct Patient Identifier, Correct procedure, History checked Correct side: Right Blood Thinner: No Monitor Applied: EKG, BP, Pulse Oximetry Supplemental Oxygen via Nasal Cannula (L/min): 4 Sedation: Versed (mg): 0 (see spinal note) Indication: Post Op Analgesia Block Type: Other (adductor canal) Catheter placed: No Sterile Technique: Yes Ultrasound used: Yes Anatomy identified: Yes Visual spread of Local: Yes Blood on Needle Aspiration: No Smooth Injection of Local: Yes Pain with Injection of Local: No Prep: Chlorhexadine Needle: 21 x 100 mm Stimuplex Local: Ropivacaine (0.25% ropivacaine ) Volume (cc): 10 Number of Attempts: 1 Complications: None/effective block Vitals: see nursing vitals, 50 mg ephedrine given slowly after the spinal Comments: performed by Wesley CLARK under supervision of Yousif Mccormick CRNA
[2018-11-13] MEDS ORDERED: Ethanol\\Acetic Acid\\Na Ace\\Ben 1,000 ML IRRIG.SOLN IR ONE (14:37)
[2018-11-13] MEDS ORDERED: Tranexamic Acid 1,000 MG/10 ML VIAL ONE (14:45)
[2018-11-13] MEDS ORDERED: *HR* PHENYLEPHRINE 1,000 MCG/10 ML SYRINGE IVP ONE ×2 (15:01→16:17)
--- NOTE | 2018-11-13 15:52 | Orthopedic Operative Note ---
Date of procedure: 11/13/18 Pre-op diagnosis: right knee arthritis Post-op diagnosis: same Procedure: Procedure: right robotic-assisted Total knee replacement Estimated blood loss: 200 cc Hardware: Metal and polyethylene replacement. Serafina Femur: 5 Tibia: 5 TS insert: 11 Patella: 36 Exam Under anesthesia:3 degree flexion contracture 3 degree valgus as calculated by the robot full flexion and no instability Procedural Notes:Grade 4 arthritic changes all three compartments Operative procedure: The patient was brought to the operating room and placed on the operating room table. After anesthesia was administered the operative knee was examined. Findings were noted in the exam under anesthesia. The operative extremity was prepped and draped in sterile surgical fashion. The patient received IV antibiotics prior to skin incision. A standard midline inc ision was made centered over the patella. The incision was made through the skin and subcutaneous tissue. A medial parapatellar tendon approach was performed. Care was taken to preserve tissue along the medial aspect of the patella. And to protect the patella tendon. The deep MCL was released off the medial tibia. The infra patella fat pad was excised. The patella was everted and cut was made at the level of the insertion of the quadriceps and patella tendon. The patella was sized the guide was seated and the lug holes are drilled. Knee was brought into flexion. Patient noted to have Grade 4 arthritic changes all three compartments. Steinmann pins were placed in the tibia and the femur for the tibial and femoral arrays respectively. Checkpoints were also placed in the tibia and the femur for calculation purposes. The knee including the femur and the tibial registered. Osteophytes, ACL and PCL were excised at this point. Extension and flexion were assessed with a valgus stress components were adjusted on the computer to balance the knee. Femoral cuts were made first with robotic assistance, these included the anterior cut posterior cuts chamfer cuts. Tibial cut was then performed with robotic assistance as well. Bone fragments were removed, as well as the medial and lateral meniscus. The size 5 femoral guide was seated box cut was made lug holes are drilled. The size 5 tibial tray was seated and prepared with the fin cutter. Trial reduction with the 11 TS Bertha revealed extension of 0 degree and 0 degrees varus valgus, full flexion. No varus valgus instability. Trial reduction revealed excellent patella tracking. All trial components were removed all bony surfaces were irrigated. The Tibia was seated followed by the femur, The selected Bertha size was seated and secured patella. Patient had similar findings for motion and stability. The knee was closed by the PA. The knee was then irrigated out with 2 L of pulse irrigation. The extensor mechanism was closed with #2 FiberWire suture and #2 PDS suture. The subcutaneous tissue was then irrigated and closed deep with #1 PDS suture superficially with 0 PDS suture and skin was closed with zip tie The patient was then placed in a sterile dressing and a postoperative brace and transferred to recovery room in stable condition. Anesthesia: GETA Surgeon: Yoni Stevens Was there an assistant county attorney present: No Estimated blood loss (cc): 200 Condition: stable Disposition: PACU
--- NOTE | 2018-11-13 17:23 | Anesthesia Evaluation Post Op ---
Date of Encounter: 11/13/18 Time of Encounter: 17:10 - Vital Signs Vital Signs: Vital Signs/O2 Sat/Glucose, Most Current Temp Pulse Resp BP Pulse Ox 11/13/18 17:08 97.0 F L 57 14 95/70 98 11/13/18 16:58 97.0 F L 55 12 93/55 98 11/13/18 16:48 97.0 F L 63 16 98/54 98 11/13/18 16:38 57 14 101/51 96 11/13/18 16:28 57 12 101/64 96 11/13/18 16:18 97.9 F 61 20 104/41 97 11/13/18 14:22 54 101/58 99 11/13/18 13:33 57 107/61 95 - Lungs Lungs: Clear Ascult./Percussion - Airway Airway: Non-obstructed - Cardiovascular Regular Rate, Baseline Rhythm - Mental Status Mental Status: Alert & Oriented, Answers Appropriately - Pain Pain Scale: 3 Pain Scale used: Numeric (1 - 10) - Nausea Vomiting Nausea Vomiting: Not Present - Hydration Hydration: Tolerates oral liquids, Able to void - Discharge PostOp Status: Transfer Patient to floor Anes Supervising Prov Stmt: Pt seen/evaluated, VSS and has met criteria for discharge to floor. - MD Little
[2018-11-13 17:24] LABS: Hematocrit 34.3 % (37.5-50.1); Hemoglobin 11.4 g/dL (12.9-16.9)
[2018-11-13] MEDS ORDERED: MOM Conc 10 ML UD.LIQ PO PRN (18:16)
[2018-11-13] MEDS ORDERED: Ondansetron 4 MG/2 ML VIAL IVP PRN (18:16)
[2018-11-13] MEDS ORDERED: Sennosides 8.6 MG TABLET PO PRN (18:16)
[2018-11-13] MEDS ORDERED: Naloxone 0.4 MG/ML INJ IVP PRN (18:16)
[2018-11-13] MEDS ORDERED: Temazepam 15 MG CAPSULE PO PRN (18:16)
[2018-11-13] MEDS: hydrOXYzine pamoate 25 MG CAPSULE PO SCH ×2 (18:49→20:47)
[2018-11-13] MEDS: Furosemide 40 MG TABLET PO SCH (18:49)
[2018-11-13] MEDS: Ringers Solution, Lactated 1,000 ML IVC SCH (19:01)
[2018-11-13] MEDS: Ascorbic Acid 500 MG TABLET PO SCH (19:02)
[2018-11-13] MEDS ORDERED: HYDROcodone BIT/Homatropine 5 MG TABLET PO PRN (22:46)
[2018-11-13] MEDS ORDERED: traMADol 50 MG TABLET PO PRN (22:47)
[2018-11-14 05:13] LABS: Basophils % 0.3 %; Eosinophils % 0.5 %; Hematocrit 31.9 % (37.5-50.1); Hemoglobin 10.4 g/dL (12.9-16.9); Immature Granulocytes % 0.3 % (0-4); Lymphocytes # 1.8 K/mcL (0.6-4.6); Lymphocytes % 20.5 %; Mean Corpuscular HGB Conc 32.6 g/dL (31.6-35.5); Mean Corpuscular Hemoglobin 29.1 pg (28.0-33.3); Mean Corpuscular Volume 89.1 fL (83.0-100.0); Mean Platelet Volume 9.6 fL (9.4-12.4); Monocytes # 0.8 K/mcL (0.0-1.3); Monocytes % 9.6 %; Neutrophils # 6.1 K/mcL (1.6-8.9); Platelet Count 219 K/mcL (140-400); Red Blood Count 3.58 M/mcL (4.19-5.50); Red Cell Distribution Width 12.3 % (11.5-14.5); Segmented Neutrophils % 68.8 %; White Blood Count 8.8 K/mcL (4.3-11.1)
[2018-11-14 05:30] LABS: BUN/Creatinine Ratio 25 (6-26); Blood Urea Nitrogen 22 mg/dL (8-23); Calcium 8.6 mg/dL (8.6-10.3); Carbon Dioxide 31 mEq/L (23-29); Chloride 101 mEq/L (98-107); Glucose 112 mg/dL (70-105); Osmolality,Calculated 292 (280-300); Potassium 3.6 mEq/L (3.5-5.1); Sodium 139 mEq/L (136-145); eGFR For African Americans > 60 (> 60); eGFR For Non-African Americans > 60 (> 60)
[2018-11-14] MEDS: *HR* Enoxaparin 30 MG/0.3 ML SYRINGE SQ SCH ×2 (06:44→16:42)
--- NOTE | 2018-11-14 08:00 | Orthopedics Progress Note ---
Date of Encounter: 11/14/18 Time of Encounter: 08:00 Subjective Interval history: Patient was seen this morning doing well without complaints. Afebrile vital signs stable. Operative extremity: Neurovascularly intact Dressing clean dry and intact Calves nontender Assessment and plan: Continue with postoperative care Hematocrit 31 Objective Vital signs: Vital Signs Temp Pulse Pulse Resp BP Pulse Ox 11/14/18 03:45 98.8 F 59 17 109/71 97 11/14/18 03:08 82 11/13/18 23:02 98.1 F 61 17 95/63 97 11/13/18 20:25 98.7 F 82 16 111/72 96 11/13/18 18:25 97.5 F L 54 92/57 95 11/13/18 17:55 98.2 F 60 14 108/72 100 11/13/18 17:25 97.5 F L 58 16 103/69 100 11/13/18 17:08 97.0 F L 57 14 95/70 98 11/13/18 16:58 97.0 F L 55 12 93/55 98 11/13/18 16:48 97.0 F L 63 16 98/54 98 11/13/18 16:38 57 14 101/51 96 11/13/18 16:28 57 12 101/64 96 11/13/18 16:18 97.9 F 61 20 104/41 97 11/13/18 14:22 54 101/58 99 11/13/18 13:33 57 107/61 95 11/13/18 12:37 18 110/71 95 11/13/18 12:26 18 110/71 95 11/13/18 12:01 97.5 F L 54 18 110/71 95 Intake and Output 11/13/18 11/13/18 11/14/18 15:59 23:59 07:59 Intake Total 100 / 100 400 / 400 Output Total 200 / 350 150 / 350 Balance -200 / -250 -50 / -250 400 / 400 Intake: IV Fluids 100 / 100 100 / 100 Ancef 2,000 MG In 0.9 % Sodium 100 / 100 100 / 100 Chloride 100 ML @ 200 mls/hr IVPB Q8H COUNTS INCLUDE 234 BEDS AT THE [facility] Rx#:[id number] Oral 300 / 300 Output: Urine 150 / 150 Estimated Blood Loss 200 / 200 Other: Weight 106.141 kg 106.2 kg Blood Glucose* 119 Patient Weight 09/26/19 23:59 Weight 106.2 kg - Labs CBC & BMP: 11/14/18 04:49 11/14/18 04:49 Labs: Abnormal lab results RBC 3.58 M/mcL (4.19-5.50) L 11/14/18 04:49 Hgb 10.4 g/dL (12.9-16.9) L 11/14/18 04:49 Hct 31.9 % (37.5-50.1) L 11/14/18 04:49 Carbon Dioxide 31 mEq/L (23-29) H 11/14/18 04:49 Glucose 112 mg/dL (70-105) H 11/14/18 04:49 POC Glucose 119 mg/dL (70-99) H 11/13/18 23:00 Consult Discharge Plan - Plan Referrals: Venkat Chamberlain MD [Primary Care Provider] - Prescriptions: Docusate Sodium [Colace] 100 mg PO BID 5 Days #10 capsule Prescription Printed Acetaminophen [Non-Aspirin Extra Strength] 500 mg PO Q6H PRN 7 Days #28 tablet PRN Reason: Mild To Moderate Pain Prescription Printed OxyCODONE Immed Rel [Roxicodone 5 MG] 5 mg PO Q6HR PRN 5 Days #20 tablet PRN Reason: Severe Pain Prescription Printed
[2018-11-14] MEDS: hydrOXYzine pamoate 25 MG CAPSULE PO SCH ×3 (09:32→20:08)
[2018-11-14] MEDS: amLODIPine 5 MG TABLET PO SCH (09:33)
[2018-11-14] MEDS: Furosemide 40 MG TABLET PO SCH ×2 (09:33→16:42)
[2018-11-14] MEDS: Ascorbic Acid 500 MG TABLET PO SCH ×2 (09:34→16:43)
[2018-11-14] MEDS: Multivit/Ca/Min/Fe/FA 1 TAB TABLET PO SCH (09:34)
[2018-11-14] MEDS: Cholecalciferol (D-3) 1,000 UNIT (25MCG) TABLET PO SCH (09:34)
[2018-11-14] MEDS: Ringers Solution, Lactated 1,000 ML IVC SCH (09:43)
--- NOTE | 2018-11-14 11:04 | Physician Discharge Referral ---
<ViktoriyaGia E - Last Filed: 11/14/18 11:04> - Transfer Medications Prescriptions: Aspirin Enteric Coated [Aspirin EC] 325 mg PO BID #20 tablet. Home Medications: Atenolol 100 mg PO DAILY 01/10/16 [History] Pantoprazole Sodium [Protonix] 40 mg PO DAILY 30 Days tablet. 01/14/16 [Rx] Cholecalciferol (D-3) [Vitamin D] 1,000 units PO DAILY 04/18/16 [History] Ferrous Sulfate [Iron] 325 mg PO BID 06/01/16 [History] hydrOXYzine HCl [Hydroxyzine HCl] 25 mg PO TID PRN 06/01/16 [History] Furosemide [Lasix] 40 mg PO BIDDIURETIC #60 tablet 06/08/16 [Rx] Acetaminophen [Non-Aspirin Extra Strength] 500 mg PO Q6H PRN 7 Days #28 tablet 11/13/18 [Rx] Docusate Sodium [Colace] 100 mg PO BID 5 Days #10 capsule 11/13/18 [Rx] OxyCODONE Immed Rel [Roxicodone 5 MG] 5 mg PO Q6HR PRN 5 Days #20 tablet 11/13/18 [Rx] Amlodipine Besylate 10 mg PO DAILY 11/14/18 [History] Ascorbic Acid [Vitamin C] 500 mg PO DAILY 11/14/18 [History] Atorvastatin [Lipitor] 10 mg PO HS 11/14/18 [History] Citalopram Hydrobromide [Citalopram HBr] 40 mg PO DAILY 11/14/18 [History] Multivitamin [Daily Multiple Vitamin] 1 tab PO DAILY 11/14/18 [History] Sennosides [Senna] 17.2 mg PO HS PRN 11/14/18 [History] Aspirin Enteric Coated [Aspirin EC] 325 mg PO BID #20 tablet. 11/18/18 [Rx] Allergies/Adverse Reactions: Allergy/AdvReac Type Severity Reaction Status Date / Time No Known Allergies Allergy Verified 11/14/18 21:56 - Respiratory Orders Smoking Cessation: Smoking cessation has been advised. For more information, call the [place] Tobacco Quit Line at 4-711-CPBU-NOW. CERTIFICATION: I certify that the transfer of the above named patient to an Extended Care Facility is necessary for the continuing treatment of the diagnosis listed. The above information is true and accurate reflection of patient's current condition. Confidential - Redisclosure prohibited without a patient's written consent. <Gia Cleaning - Last Filed: 11/18/18 13:37> ExtendedCare Referral Info Transfer To: [facility] Provider in Charge: Dr. Stevens - Diagnosis (1) Status post total right knee replacement Priority: Primary Status: Acute (2) Arthritis of knee Priority: Primary Status: Chronic (3) Acute blood loss anemia Priority: Secondary Status: Acute (4) Hyperlipidemia Priority: Secondary Status: Chronic (5) Hypertension Priority: Secondary Status: Chronic (6) Nocturnal oxygen desaturation Priority: Secondary Status: Chronic (7) Obesity (BMI 30-39.9) Priority: Secondary Status: Chronic (8) CHF (congestive heart failure) Priority: Secondary Status: Chronic Expected Duration of Placement: <30 days Prognosis: Good Aware of Diagnosis: Patient Aware of Prognosis: Patient - Respiratory Orders Oxygen / L per min (2L O2 by NC at night per patient as needed (was not needed during hospital admission)) Smoking Cessation: Smoking cessation has been advised. For more information, call the [employer] Tobacco Quit Line at 0-607-OTRM-NOW. - Lab Orders Lab Orders: Other (include drug levels w/frequency) (recheck H/H in 48 hrs) - Ancillary Orders May use pressure relief devices daily prn, May go on RUPERTO w/family/respon libertarian w/meds at nurse discretion PRN, May consult with Dentist, National Sales Associate, Commercial Litigation Paralegal PRN - Advance Directives Code Status: Full Code - Mobility Orders Chair, Ambulate - Rehabiliation Orders Rehab Potential: Good Rehab Orders: ROM Exercises, Evaluation for Physical Therapy, Evaluation for Occupational Therapy Other: Opsite dressing, leave intact until first post-operative visit. If dressing becomes >50% saturated, contact office, remove dressing and place appropriate dressing in its place. Do not allow for dressing to get wet. Zipline/[place] in place, plan to remove at post-operative day #14-16. Total Joint Precautions x 6 weeks Apply cold therapy wrap 3-6x/day for 20 minutes at a time. Encourage ambulation throughout the day Use Incentive spirometer 10x/hour. Elevate affected extremity above heart as tolerated. Brace: Wear knee immobilizer at night x 2 weeks. - Treatments Skin tear care topically daily PRN per policy - Diet Orders Regular CERTIFICATION: I certify that the transfer of the above named patient to an Extended Care Facility is necessary for the continuing treatment of the diagnosis listed. The above information is true and accurate reflection of patient's current condition. Confidential - Redisclosure prohibited without a patient's written consent.
--- NOTE | 2018-11-14 11:04 | Event Note ---
Date of Encounter: 11/14/18 Time of Encounter: 12:15 s/p R TKR 11/13/18 Patient seen at bedside. A&Ox3 Dressing and incision c/d/i No calf tenderness, erythema, or warmth. Neurovascularly intact b/l LE. Labwork, vitals, and medications reviewed. Pain control: Adequate Participating in therapy. All questions and concerns addressed. Educated on use of incentive spirometer, ambulation, and hydration. Patient educated on post-operative restrictions and care. Addressed: see above. Patient course and disposition discussed with Dr. Stevens D/C plan: Awaiting placement
[2018-11-14] MEDS ORDERED: *HR* Enoxaparin 30 MG/0.3 ML SYRINGE SQ SCH (13:15)
[2018-11-14] MEDS: *HR* OxyCODONE Immed Rel 5 MG TABLET PO PRN ×2 (13:55→20:07)
[2018-11-14] MEDS ORDERED: Ketorolac 30 MG/ML VIAL IVP PRN (22:17)
[2018-11-15 04:31] LABS: Basophils % 0.2 %; Eosinophils # 0.1 K/mcL (0.0-0.6); Eosinophils % 1.1 %; Hematocrit 26.3 % (37.5-50.1); Immature Granulocytes % 0.2 % (0-4); Lymphocytes # 2.2 K/mcL (0.6-4.6); Lymphocytes % 25.1 %; Mean Corpuscular HGB Conc 33.1 g/dL (31.6-35.5); Mean Corpuscular Hemoglobin 29.6 pg (28.0-33.3); Mean Corpuscular Volume 89.5 fL (83.0-100.0); Mean Platelet Volume 9.7 fL (9.4-12.4); Monocytes % 11.5 %; Neutrophils # 5.4 K/mcL (1.6-8.9); Platelet Count 184 K/mcL (140-400); Red Blood Count 2.94 M/mcL (4.19-5.50); Red Cell Distribution Width 12.5 % (11.5-14.5); Segmented Neutrophils % 61.9 %; White Blood Count 8.8 K/mcL (4.3-11.1)
[2018-11-15 04:34] LABS: Hemoglobin 8.7 g/dL (12.9-16.9)
[2018-11-15 04:48] LABS: BUN/Creatinine Ratio 26 (6-26); Blood Urea Nitrogen 24 mg/dL (8-23); Calcium 8.4 mg/dL (8.6-10.3); Carbon Dioxide 30 mEq/L (23-29); Chloride 103 mEq/L (98-107); Glucose 119 mg/dL (70-105); Osmolality,Calculated 291 (280-300); Potassium 3.5 mEq/L (3.5-5.1); Sodium 138 mEq/L (136-145); eGFR For African Americans > 60 (> 60); eGFR For Non-African Americans > 60 (> 60)
[2018-11-15] MEDS: *HR* Enoxaparin 30 MG/0.3 ML SYRINGE SQ SCH ×2 (06:10→17:13)
[2018-11-15] MEDS: hydrOXYzine pamoate 25 MG CAPSULE PO SCH ×3 (08:39→20:26)
[2018-11-15] MEDS: Ascorbic Acid 500 MG TABLET PO SCH ×2 (08:39→16:20)
[2018-11-15] MEDS: Multivit/Ca/Min/Fe/FA 1 TAB TABLET PO SCH (08:39)
[2018-11-15] MEDS: Cholecalciferol (D-3) 1,000 UNIT (25MCG) TABLET PO SCH (08:39)
[2018-11-15] MEDS: amLODIPine 5 MG TABLET PO SCH (08:40)
[2018-11-15] MEDS: Furosemide 40 MG TABLET PO SCH ×2 (08:40→16:20)
--- NOTE | 2018-11-15 10:53 | Orthopedics Progress Note ---
Date of Encounter: 11/15/18 Time of Encounter: 13:00 - Assessment and Plan (1) Status post total right knee replacement Current Visit: Yes Status: Acute Subjective Principal diagnosis: s/p right total knee Interval history: s/p right total knee 11/13 Patient seen at bedside. Patient c/o cough with sputum production. A&Ox3 Dressing and incision c/d/i No calf tenderness, erythema, or warmth. Neurovascularly intact b/l LE. Labwork, vitals, and medications reviewed. Pain control: Adequate Participating in therapy. All questions and concerns addressed. Educated on use of incentive spirometer, ambulation, and hydration. Patient educated on post-operative restrictions and care. Addressed: CXR ordered to eval cough. Patient is a former smoker. Respiratory panel ordered. Sputum culture ordered. drop in hgb 8.7 - recheck h/h later today Patient course and disposition discussed with Dr. Stevens D/C plan:. possible d/c on Sunday to [facility] Vital signs: Vital Signs Temp Pulse Pulse Resp BP Pulse Ox 11/15/18 07:59 98.1 F 62 16 94/62 94 11/15/18 03:15 98.0 F 57 16 95/60 95 11/14/18 23:21 98.5 F 65 17 109/70 95 11/14/18 23:17 70 11/14/18 15:52 98.5 F 69 18 100/66 96 11/14/18 11:31 97.9 F 57 18 112/69 99 Intake and Output 11/14/18 11/15/18 11/15/18 23:59 07:59 15:59 Intake Total 1325 / 3725 480 / 480 Output Total 310 / 510 Balance 1015 / 3215 480 / 480 Intake: IV Fluids 1000 / 2100 Lactated Ringers 1,000 ML @ 75 1000 / 2000 mls/hr IVC .[id number] [place] Rx#: [id number] Oral 325 / 1625 480 / 480 Output: Urine 310 / 510 Other: Meal Breakfast Percent of Meal Consumed 100% Weight 106.4 kg Patient Weight 11/15/18 23:59 Weight 106.4 kg - Labs CBC & BMP: 11/15/18 14:09 11/15/18 03:46 Labs: Abnormal lab results RBC 2.94 M/mcL (4.19-5.50) L 11/15/18 03:46 Hgb 8.7 g/dL (12.9-16.9) L D 11/15/18 03:46 Hct 26.3 % (37.5-50.1) L 11/15/18 03:46 Carbon Dioxide 30 mEq/L (23-29) H 11/15/18 03:46 BUN 24 mg/dL (8-23) H 11/15/18 03:46 Glucose 119 mg/dL (70-105) H 11/15/18 03:46 POC Glucose 119 mg/dL (70-99) H 11/13/18 23:00 Calcium 8.4 mg/dL (8.6-10.3) L 11/15/18 03:46 Consult Discharge Plan - Plan Referrals: Venkat Chamberlain MD [Primary Care Provider] -
[2018-11-15] MEDS: *HR* OxyCODONE Immed Rel 5 MG TABLET PO PRN ×2 (11:56→20:25)
[2018-11-15 12:42] LABS: Adenovirus Not Detected (Not Detect); Bordetella Pertussis Not Detected (Not Detect); Chlamydophila pneumoniae Not Detected (Not Detect); Coronavirus 229E Not Detected (Not Detect); Coronavirus HKU1 Not Detected (Not Detect); Coronavirus NL63 Not Detected (Not Detect); Coronavirus OC43 Not Detected (Not Detect); Human Metapneumovirus Not Detected (Not Detect); Human Rhinovirus/Enterovirus Not Detected (Not Detect); Influenza A Subtype 2009 H1 Not Detected (Not Detect); Influenza A Untypeable Not Detected (Not Detect); Influenza B Not Detected (Not Detect); Mycoplasma pneumoniae Not Detected (Not Detect); Parainfluenza Virus 1 Not Detected (Not Detect); Parainfluenza Virus 2 Not Detected (Not Detect); Parainfluenza Virus 3 Not Detected (Not Detect); Parainfluenza Virus 4 Not Detected (Not Detect); Respiratory Syncytial Virus Not Detected (Not Detect)
[2018-11-15] MEDS ORDERED: Ipratropium/Albuterol Neb 3 ML IH PRN (13:38)
[2018-11-15 14:41] LABS: Hematocrit 30.9 % (37.5-50.1); Hemoglobin 9.8 g/dL (12.9-16.9)
[2018-11-16] MEDS: *HR* Enoxaparin 30 MG/0.3 ML SYRINGE SQ SCH ×2 (05:31→18:13)
[2018-11-16] MEDS: *HR* OxyCODONE Immed Rel 5 MG TABLET PO PRN ×3 (06:36→18:12)
--- NOTE | 2018-11-16 08:02 | Orthopedics Progress Note ---
Date of Encounter: 11/16/18 Time of Encounter: 08:01 Subjective Principal diagnosis: s/p right total knee Interval history: No overnight issues. Pain is controlled. No nausea/vomiting. No CP/SOB. Vitals reviewed Extremity exam: Dressing clean, dry and intact No erythema or drainage Distally neurovascularly intact to motor/sensory exam No calf pain or tenderness s/p R TKA Continue current management PO pain and nausea control Up with PT Discharge planning Objective Vital signs: Vital Signs Temp Pulse Pulse Resp BP Pulse Ox 11/16/18 06:35 98.4 F 74 18 106/70 95 11/16/18 04:27 98.7 F 70 20 107/66 93 11/16/18 00:48 83 11/16/18 00:24 98.7 F 81 20 110/64 95 11/15/18 20:33 77 11/15/18 18:45 97.8 F 74 20 124/61 93 11/15/18 15:59 98.1 F 62 18 102/65 97 11/15/18 15:31 98.1 F 62 18 102/65 97 11/15/18 11:17 98.5 F 78 18 106/69 97 Intake and Output 11/15/18 11/16/18 11/16/18 23:59 07:59 15:59 Intake Total 550 / 1510 900 / 900 Output Total 410 / 410 1000 / 1000 Balance 140 / 1100 -100 / -100 Intake: Oral 550 / 1510 900 / 900 Output: Urine 410 / 410 1000 / 1000 Other: Weight 106.3 kg Patient Weight 11/16/18 23:59 Weight 106.3 kg - Labs CBC & BMP: 11/15/18 14:09 11/15/18 03:46 Labs: Abnormal lab results RBC 2.94 M/mcL (4.19-5.50) L 11/15/18 03:46 Hgb 9.8 g/dL (12.9-16.9) L 11/15/18 14:09 Hct 30.9 % (37.5-50.1) L 11/15/18 14:09 Carbon Dioxide 30 mEq/L (23-29) H 11/15/18 03:46 BUN 24 mg/dL (8-23) H 11/15/18 03:46 Glucose 119 mg/dL (70-105) H 11/15/18 03:46 POC Glucose 119 mg/dL (70-99) H 11/13/18 23:00 Calcium 8.4 mg/dL (8.6-10.3) L 11/15/18 03:46 Consult Discharge Plan - Plan Referrals: Venkat Chamberlain MD [Primary Care Provider] -
[2018-11-16] MEDS: Multivit/Ca/Min/Fe/FA 1 TAB TABLET PO SCH (08:51)
[2018-11-16] MEDS: Cholecalciferol (D-3) 1,000 UNIT (25MCG) TABLET PO SCH (08:51)
[2018-11-16] MEDS: Furosemide 40 MG TABLET PO SCH ×2 (08:51→16:09)
[2018-11-16] MEDS: Ascorbic Acid 500 MG TABLET PO SCH ×2 (08:51→16:09)
[2018-11-16] MEDS: hydrOXYzine pamoate 25 MG CAPSULE PO SCH ×3 (08:51→21:42)
[2018-11-16] MEDS: amLODIPine 5 MG TABLET PO SCH (08:52)
[2018-11-17 03:55] LABS: Basophils % 0.3 %; Eosinophils # 0.3 K/mcL (0.0-0.6); Eosinophils % 2.8 %; Hematocrit 27.1 % (37.5-50.1); Hemoglobin 8.8 g/dL (12.9-16.9); Immature Granulocytes % 0.5 % (0-4); Lymphocytes # 2.4 K/mcL (0.6-4.6); Lymphocytes % 23.2 %; Mean Corpuscular HGB Conc 32.5 g/dL (31.6-35.5); Mean Corpuscular Hemoglobin 29.2 pg (28.0-33.3); Monocytes % 9.9 %; Neutrophils # 6.5 K/mcL (1.6-8.9); Platelet Count 226 K/mcL (140-400); Red Blood Count 3.01 M/mcL (4.19-5.50); Red Cell Distribution Width 12.8 % (11.5-14.5); Segmented Neutrophils % 63.3 %; White Blood Count 10.3 K/mcL (4.3-11.1)
[2018-11-17 04:14] LABS: BUN/Creatinine Ratio 22 (6-26); Blood Urea Nitrogen 17 mg/dL (8-23); Calcium 8.6 mg/dL (8.6-10.3); Carbon Dioxide 32 mEq/L (23-29); Chloride 105 mEq/L (98-107); Glucose 114 mg/dL (70-105); Osmolality,Calculated 282 (280-300); Potassium 3.8 mEq/L (3.5-5.1); Sodium 135 mEq/L (136-145); eGFR For African Americans > 60 (> 60); eGFR For Non-African Americans > 60 (> 60)
[2018-11-17] MEDS: *HR* Enoxaparin 30 MG/0.3 ML SYRINGE SQ SCH ×2 (06:10→16:21)
[2018-11-17] MEDS: Ascorbic Acid 500 MG TABLET PO SCH ×2 (08:06→16:24)
[2018-11-17] MEDS: Cholecalciferol (D-3) 1,000 UNIT (25MCG) TABLET PO SCH (08:06)
[2018-11-17] MEDS: hydrOXYzine pamoate 25 MG CAPSULE PO SCH ×3 (08:06→21:35)
[2018-11-17] MEDS: Multivit/Ca/Min/Fe/FA 1 TAB TABLET PO SCH (08:06)
[2018-11-17] MEDS: *HR* OxyCODONE Immed Rel 5 MG TABLET PO PRN ×3 (08:06→21:34)
[2018-11-17] MEDS: Furosemide 40 MG TABLET PO SCH ×2 (08:06→16:24)
[2018-11-17] MEDS: amLODIPine 5 MG TABLET PO SCH (08:07)
--- NOTE | 2018-11-17 11:11 | Orthopedics Progress Note ---
Date of Encounter: 11/17/18 Time of Encounter: 11:11 Subjective Principal diagnosis: s/p right total knee Interval history: No overnight issues. Pain is controlled. No nausea/vomiting. No CP/SOB. Vitals reviewed Extremity exam: Dressing clean, dry and intact No erythema or drainage Distally neurovascularly intact to motor/sensory exam No calf pain or tenderness s/p R TKA Continue current management PO pain and nausea control Up with PT Discharge planning Objective Vital signs: Vital Signs Temp Pulse Pulse Resp BP Pulse Ox 11/17/18 06:20 98.9 F 68 18 102/63 11/17/18 05:31 97.8 F 66 20 112/72 90 11/17/18 00:32 77 11/16/18 23:50 97.7 F 64 20 97/62 94 11/16/18 18:49 98.9 F 66 20 97/61 92 11/16/18 18:36 108/59 11/16/18 15:19 98.3 F 67 18 101/65 93 Intake and Output 11/16/18 11/17/18 11/17/18 23:59 07:59 15:59 Intake Total 1090 / 2390 550 / 550 Output Total 1000 / 2000 350 / 500 150 / 500 Balance 90 / 390 200 / 50 -150 / 50 Intake: Oral 1090 / 2390 550 / 550 Output: Urine 1000 / 2000 350 / 500 150 / 500 Other: Meal Dinner Percent of Meal Consumed 95% Weight 106.4 kg Patient Weight 11/17/18 23:59 Weight 106.4 kg - Labs CBC & BMP: 11/17/18 03:26 11/17/18 03:26 Labs: Abnormal lab results RBC 3.01 M/mcL (4.19-5.50) L 11/17/18 03:26 Hgb 8.8 g/dL (12.9-16.9) L 11/17/18 03:26 Hct 27.1 % (37.5-50.1) L 11/17/18 03:26 Sodium 135 mEq/L (136-145) L 11/17/18 03:26 Carbon Dioxide 32 mEq/L (23-29) H 11/17/18 03:26 BUN 24 mg/dL (8-23) H 11/15/18 03:46 Glucose 114 mg/dL (70-105) H 11/17/18 03:26 POC Glucose 119 mg/dL (70-99) H 11/13/18 23:00 Calcium 8.4 mg/dL (8.6-10.3) L 11/15/18 03:46 Consult Discharge Plan - Plan Referrals: Venkat Chamberlain MD [Primary Care Provider] -
[2018-11-18] MEDS: *HR* Enoxaparin 30 MG/0.3 ML SYRINGE SQ SCH (05:54)
--- NOTE | 2018-11-18 06:46 | Orthopedics Progress Note ---
Date of Encounter: 11/18/18 Time of Encounter: 06:45 - Assessment and Plan (1) Acute blood loss anemia Current Visit: Yes Status: Acute Subjective Principal diagnosis: s/p right total knee Interval history: Patient was seen this morning doing well without complaints. Afebrile vital signs stable. Operative extremity: Neurovascularly intact Dressing clean dry and intact Calves nontender Assessment and plan: Continue with postoperative care DC today Objective Vital signs: Vital Signs Temp Pulse Pulse Resp BP Pulse Ox 11/18/18 04:43 98.6 F 68 20 105/70 90 11/18/18 00:50 77 11/18/18 00:45 97.7 F 74 20 121/73 96 11/17/18 21:16 71 11/17/18 19:23 98.7 F 67 20 109/68 97 11/17/18 15:47 98.7 F 87 18 109/61 11/17/18 12:03 98.3 F 63 18 109/60 Intake and Output 11/17/18 11/17/18 11/18/18 15:59 23:59 07:59 Intake Total 600 / 1750 600 / 1750 1000 / 1000 Output Total 700 / 1450 400 / 1450 1010 / 1010 Balance -100 / 300 200 / 300 -10 / -10 Intake: Oral 600 / 1750 600 / 1750 1000 / 1000 Output: Urine 700 / 1450 400 / 1450 1010 / 1010 Other: Meal Lunch Dinner Percent of Meal Consumed 75% 100% - Labs CBC & BMP: 11/17/18 03:26 11/17/18 03:26 Labs: Abnormal lab results RBC 3.01 M/mcL (4.19-5.50) L 11/17/18 03:26 Hgb 8.8 g/dL (12.9-16.9) L 11/17/18 03:26 Hct 27.1 % (37.5-50.1) L 11/17/18 03:26 Sodium 135 mEq/L (136-145) L 11/17/18 03:26 Carbon Dioxide 32 mEq/L (23-29) H 11/17/18 03:26 BUN 24 mg/dL (8-23) H 11/15/18 03:46 Glucose 114 mg/dL (70-105) H 11/17/18 03:26 POC Glucose 119 mg/dL (70-99) H 11/13/18 23:00 Calcium 8.4 mg/dL (8.6-10.3) L 11/15/18 03:46 Consult Discharge Plan - Plan Referrals: Venkat Chamberlain MD [Primary Care Provider] -
[2018-11-18 07:03] LABS: Basophils % 0.2 %; Eosinophils # 0.3 K/mcL (0.0-0.6); Eosinophils % 2.5 %; Hematocrit 26.8 % (37.5-50.1); Hemoglobin 8.6 g/dL (12.9-16.9); Immature Granulocytes % 0.4 % (0-4); Lymphocytes % 19.9 %; Mean Corpuscular HGB Conc 32.1 g/dL (31.6-35.5); Mean Corpuscular Hemoglobin 29.2 pg (28.0-33.3); Mean Corpuscular Volume 90.8 fL (83.0-100.0); Mean Platelet Volume 9.7 fL (9.4-12.4); Monocytes # 1.1 K/mcL (0.0-1.3); Monocytes % 11.1 %; Neutrophils # 6.7 K/mcL (1.6-8.9); Platelet Count 230 K/mcL (140-400); Red Blood Count 2.95 M/mcL (4.19-5.50); Segmented Neutrophils % 65.9 %; White Blood Count 10.1 K/mcL (4.3-11.1)
[2018-11-18 07:19] LABS: BUN/Creatinine Ratio 23 (6-26); Blood Urea Nitrogen 17 mg/dL (8-23); Carbon Dioxide 31 mEq/L (23-29); Chloride 102 mEq/L (98-107); Glucose 109 mg/dL (70-105); Osmolality,Calculated 288 (280-300); Potassium 4.2 mEq/L (3.5-5.1); Sodium 138 mEq/L (136-145); eGFR For African Americans > 60 (> 60); eGFR For Non-African Americans > 60 (> 60)
[2018-11-18] MEDS: Multivit/Ca/Min/Fe/FA 1 TAB TABLET PO SCH (07:27)
[2018-11-18] MEDS: Ascorbic Acid 500 MG TABLET PO SCH (07:27)
[2018-11-18] MEDS: amLODIPine 5 MG TABLET PO SCH (07:28)
[2018-11-18] MEDS: Cholecalciferol (D-3) 1,000 UNIT (25MCG) TABLET PO SCH (07:28)
[2018-11-18] MEDS: Furosemide 40 MG TABLET PO SCH (07:28)
[2018-11-18] MEDS: *HR* OxyCODONE Immed Rel 5 MG TABLET PO PRN ×2 (07:29→15:56)
[2018-11-18] MEDS: hydrOXYzine pamoate 25 MG CAPSULE PO SCH ×2 (07:38→14:04)
[2018-11-18 11:24] VITALS: BP 116/64
[2018-11-18] MEDS ORDERED: FLU Vac QV 19-20 (6Month+)/PF 0.5 ML SYRINGE IM ONE (13:39)
== END 2018-11-18 16:27 | DRG 470 ==
LOC: SAMDAY 11:40 → 3NENU 18:55
PROVIDERS: ADMIT Orthopaedic Surgery; ATTEND Orthopaedic Surgery

== ENCOUNTER 2021-06-03 15:27 | Observation (INO) ==
[2021-06-03] MEDS ORDERED: 0.9 % Sodium Chloride 1,000 ML IVC ONE ×2 (16:34→21:39)
[2021-06-03 16:49] LABS: Basophils % 0.2 %; Eosinophils % 0.2 %; Immature Granulocytes % 0.9 % (0-4); Lymphocytes # 1.7 K/mcL (0.6-4.6); Lymphocytes % 20.4 %; Mean Corpuscular HGB Conc 32.6 g/dL (31.6-35.5); Mean Corpuscular Hemoglobin 27.3 pg (28.0-33.3); Mean Corpuscular Volume 83.6 fL (83.0-100.0); Monocytes # 0.5 K/mcL (0.0-1.3); Monocytes % 6.7 %; Neutrophils # 5.8 K/mcL (1.6-8.9); Nucleated Red Blood Cells 0.2 /100 WBC (0); Platelet Count 271 K/mcL (140-400); Red Cell Distribution Width 16.8 % (11.5-14.5); Segmented Neutrophils % 71.6 %; White Blood Count 8.1 K/mcL (4.3-11.1)
[2021-06-03 17:12] LABS: Alanine Aminotransferase 5 Units/L (7-52); Albumin 4.5 g/dL (3.5-5.7); Albumin/Globulin Ratio 1.5 (1.1-2.2); Alkaline Phosphatase 118 Units/L (34-104); Aspartate Amino Transferase 14 Units/L (13-39); BUN/Creatinine Ratio 35 (6-26); Bilirubin,Total 1.5 mg/dL (0.3-1.0); Blood Urea Nitrogen 33 mg/dL (8-23); Calcium 10.4 mg/dL (8.6-10.3); Carbon Dioxide 36 mEq/L (23-29); Chloride 85 mEq/L (98-107); Creatine Kinase 21 Units/L (30-223); Glucose 112 mg/dL (70-105); Magnesium 2.3 mg/dL (1.6-2.6); Osmolality,Calculated 296 (280-300); Potassium 3.8 mEq/L (3.5-5.1); Sodium 139 mEq/L (136-145); Total Protein 7.5 g/dL (6.4-8.9); Troponin I 0.08 ng/mL (< 0.04); eGFR For African Americans > 60 (> 60); eGFR For Non-African Americans > 60 (> 60)
[2021-06-03 19:24] LABS: Bilirubin,Urine Moderate (Negative); Blood,Urine Negative (Negative); Clarity,Urine Turbid (Clear); Color,Urine Yellow (Yellow); Glucose,Urine (UA) Normal (Normal); Ketones,Urine 40 mg/dL (Negative); Leukocyte Esterase,Urine Small (Negative); Mucus,Urine Few per lpf (None-Few); Nitrite,Urine Negative (Negative); PH,Urine 6.5 pH Units (5.0-8.0); Protein,Urine 50 mg/dL (Neg-Trace); Specific Gravity,Urine > 1.030 (1.010-1.025); Squamous Epithelial Cell,Urine Few per hpf (None-Few); Transitional Epi Cells,Urine Few per hpf (None-Few); WBC,Urine 15-30 per hpf (0-3)
[2021-06-03] MEDS ORDERED: cefTRIAXone 1,000 MG in Water for inj. (sterile) 10 ML IVP ONE (19:25)
[2021-06-03 19:43] LABS: Troponin I 0.07 ng/mL (< 0.04)
[2021-06-03] MEDS ORDERED: Naloxone 0.4 MG/ML INJ IVP PRN (20:02)
[2021-06-03] MEDS ORDERED: THIAMINE IVPB STA (21:38)
[2021-06-03] MEDS ORDERED: SODIUM CHLORIDE 0.9% IVPB STA (21:38)
[2021-06-03] MEDS ORDERED: 0.9 % Sodium Chloride 1,000 ML IV ONE (22:00)
[2021-06-03] MEDS ORDERED: *HR* Metoprolol 5 MG/5 ML VIAL IVP ONE (23:29)
[2021-06-03] MEDS ORDERED: Perflutren Lipid Microsphere 1.3 ML in 0.9 % Sodium Chloride 8.7 ML IVP PRN (23:29)
[2021-06-04] MEDS: 0.9 % Sodium Chloride 1,000 ML IVC SCH ×2 (01:13→10:15)
[2021-06-04] MEDS: Nystatin POWDER 30 GM BOTTLE TP SCH ×3 (01:13→19:57)
[2021-06-04 04:12] LABS: Basophils % 0.1 %; Eosinophils % 0.3 %; Hematocrit 32.1 % (37.5-50.1); Hemoglobin 10.4 g/dL (12.9-16.9); Immature Granulocytes % 0.6 % (0-4); Lymphocytes # 1.3 K/mcL (0.6-4.6); Lymphocytes % 13.4 %; Mean Corpuscular HGB Conc 32.4 g/dL (31.6-35.5); Mean Corpuscular Hemoglobin 26.9 pg (28.0-33.3); Mean Corpuscular Volume 83.2 fL (83.0-100.0); Mean Platelet Volume 8.8 fL (9.4-12.4); Monocytes # 0.6 K/mcL (0.0-1.3); Monocytes % 6.9 %; Neutrophils # 7.3 K/mcL (1.6-8.9); Nucleated Red Blood Cells 0.2 /100 WBC (0); Platelet Count 188 K/mcL (140-400); Red Blood Count 3.86 M/mcL (4.19-5.50); Red Cell Distribution Width 16.4 % (11.5-14.5); Segmented Neutrophils % 78.7 %; White Blood Count 9.3 K/mcL (4.3-11.1)
[2021-06-04 04:34] LABS: Alanine Aminotransferase < 3 Units/L (7-52); Albumin 3.2 g/dL (3.5-5.7); Albumin/Globulin Ratio 1.3 (1.1-2.2); Alkaline Phosphatase 84 Units/L (34-104); Aspartate Amino Transferase 11 Units/L (13-39); BUN/Creatinine Ratio 40 (6-26); Bilirubin,Total 0.7 mg/dL (0.3-1.0); Blood Urea Nitrogen 31 mg/dL (8-23); Calcium 8.4 mg/dL (8.6-10.3); Carbon Dioxide 32 mEq/L (23-29); Chloride 95 mEq/L (98-107); Creatine Kinase 22 Units/L (30-223); Globulin 2.4 g/dL (2.4-3.5); Glucose 151 mg/dL (70-105); Magnesium 1.8 mg/dL (1.6-2.6); Osmolality,Calculated 295 (280-300); Phosphorous 2.9 mg/dL (2.7-4.5); Potassium 2.9 mEq/L (3.5-5.1); Sodium 138 mEq/L (136-145); Total Protein 5.6 g/dL (6.4-8.9); eGFR For African Americans > 60 (> 60); eGFR For Non-African Americans > 60 (> 60)
[2021-06-04] MEDS: Acetaminophen 325 MG TABLET PO PRN ×2 (05:39→20:28)
[2021-06-04] MEDS: *HR* Enoxaparin 40 MG/0.4 ML SYRINGE SQ SCH (05:40)
[2021-06-04] MEDS: Multivit/Ca/Min/Fe/FA 1 TAB TABLET PO SCH (08:31)
[2021-06-04] MEDS ORDERED: Isovue-370 500 ML BOTTLE IVP ONE (12:03)
[2021-06-04] MEDS ORDERED: Albumin 25% 25gram/100mL 25 GM/100 ML IV.SOLN IVPB ONE (15:54)
[2021-06-04] MEDS ORDERED: 0.9 % Sodium Chloride 1,000 ML IVC ONE (20:10)
[2021-06-05 03:49] LABS: Hematocrit 26.6 % (37.5-50.1); Mean Corpuscular HGB Conc 31.2 g/dL (31.6-35.5); Mean Corpuscular Hemoglobin 26.8 pg (28.0-33.3); Mean Corpuscular Volume 85.8 fL (83.0-100.0); Mean Platelet Volume 9.1 fL (9.4-12.4); Platelet Count 146 K/mcL (140-400); Red Cell Distribution Width 16.8 % (11.5-14.5); White Blood Count 6.1 K/mcL (4.3-11.1)
[2021-06-05 04:08] LABS: BUN/Creatinine Ratio 22 (6-26); Blood Urea Nitrogen 19 mg/dL (8-23); Calcium 8.6 mg/dL (8.6-10.3); Carbon Dioxide 33 mEq/L (23-29); Chloride 104 mEq/L (98-107); Glucose 106 mg/dL (70-105); Osmolality,Calculated 293 (280-300); Potassium 3.3 mEq/L (3.5-5.1); Sodium 140 mEq/L (136-145); eGFR For African Americans > 60 (> 60); eGFR For Non-African Americans > 60 (> 60)
[2021-06-05 04:09] LABS: Magnesium 1.6 mg/dL (1.6-2.6); Phosphorous 1.7 mg/dL (2.7-4.5)
[2021-06-05 04:18] LABS: Hemoglobin 8.3 g/dL (12.9-16.9)
[2021-06-05] MEDS: *HR* Enoxaparin 40 MG/0.4 ML SYRINGE SQ SCH (05:26)
[2021-06-05] MEDS: Nystatin POWDER 30 GM BOTTLE TP SCH ×2 (08:24→22:04)
[2021-06-05] MEDS: Multivit/Ca/Min/Fe/FA 1 TAB TABLET PO SCH (08:24)
[2021-06-05] MEDS: Megestrol Acetate 400 MG/10 ML UDC PO SCH (08:25)
[2021-06-05] MEDS: 0.9 % Sodium Chloride 1,000 ML IVC SCH (15:45)
[2021-06-06] MEDS: 0.9 % Sodium Chloride 1,000 ML IVC SCH (01:53)
[2021-06-06] MEDS: *HR* Enoxaparin 40 MG/0.4 ML SYRINGE SQ SCH (05:29)
[2021-06-06 06:27] LABS: Hematocrit 29.8 % (37.5-50.1); Hemoglobin 9.2 g/dL (12.9-16.9); Mean Corpuscular HGB Conc 30.9 g/dL (31.6-35.5); Mean Corpuscular Hemoglobin 26.7 pg (28.0-33.3); Mean Corpuscular Volume 86.6 fL (83.0-100.0); Mean Platelet Volume 9.4 fL (9.4-12.4); Platelet Count 170 K/mcL (140-400); Red Blood Count 3.44 M/mcL (4.19-5.50); Red Cell Distribution Width 17.3 % (11.5-14.5); White Blood Count 5.6 K/mcL (4.3-11.1)
[2021-06-06 06:50] LABS: BUN/Creatinine Ratio 17 (6-26); Blood Urea Nitrogen 12 mg/dL (8-23); Calcium 8.7 mg/dL (8.6-10.3); Carbon Dioxide 29 mEq/L (23-29); Chloride 107 mEq/L (98-107); Glucose 90 mg/dL (70-105); Magnesium 1.4 mg/dL (1.6-2.6); Osmolality,Calculated 291 (280-300); Phosphorous 2.2 mg/dL (2.7-4.5); Sodium 141 mEq/L (136-145); eGFR For African Americans > 60 (> 60); eGFR For Non-African Americans > 60 (> 60)
[2021-06-06] MEDS: Megestrol Acetate 400 MG/10 ML UDC PO SCH (08:31)
[2021-06-06] MEDS: Nystatin POWDER 30 GM BOTTLE TP SCH ×2 (08:31→20:56)
[2021-06-06] MEDS: Multivit/Ca/Min/Fe/FA 1 TAB TABLET PO SCH (08:31)
[2021-06-06] MEDS: Acetaminophen 325 MG TABLET PO PRN (15:16)
[2021-06-07] MEDS: Acetaminophen 325 MG TABLET PO PRN (03:13)
[2021-06-07] MEDS: *HR* Enoxaparin 40 MG/0.4 ML SYRINGE SQ SCH (05:26)
[2021-06-07 06:30] VITALS: O2SAT 100
[2021-06-07] MEDS: Nystatin POWDER 30 GM BOTTLE TP SCH (08:02)
[2021-06-07] MEDS: Megestrol Acetate 400 MG/10 ML UDC PO SCH (08:02)
[2021-06-07] MEDS: Multivit/Ca/Min/Fe/FA 1 TAB TABLET PO SCH (08:03)
[2021-06-08] MEDS: Nystatin POWDER 30 GM BOTTLE TP SCH ×2 (05:52→08:13)
[2021-06-08] MEDS: *HR* Enoxaparin 40 MG/0.4 ML SYRINGE SQ SCH (05:53)
[2021-06-08] MEDS: Megestrol Acetate 400 MG/10 ML UDC PO SCH (08:13)
[2021-06-08] MEDS: Multivit/Ca/Min/Fe/FA 1 TAB TABLET PO SCH (08:13)
[2021-06-08 10:57] VITALS: BP 128/67; PULSE 96; TEMP 97.6
== END 2021-06-08 13:15 ==
LOC: EMEROOARM 15:27 → 3BNU 15:27 → SUATTDRO 20:30 → 3BNU 21:09
PROVIDERS: ADMIT Internal Medicine; ATTEND Family Medicine

== ENCOUNTER 2021-09-26 16:26 | Inpatient (IN) ==
[2021-09-26 17:56] LABS: Basophils % 0.2 %; Eosinophils % 0.1 %; Hematocrit 36.7 % (37.5-50.1); Hemoglobin 11.8 g/dL (12.9-16.9); Immature Granulocytes % 0.4 % (0-4); Lymphocytes # 0.8 K/mcL (0.6-4.6); Lymphocytes % 5.5 %; Mean Corpuscular HGB Conc 32.2 g/dL (31.6-35.5); Mean Corpuscular Volume 87.2 fL (83.0-100.0); Mean Platelet Volume 9.4 fL (9.4-12.4); Monocytes # 0.7 K/mcL (0.0-1.3); Monocytes % 4.9 %; Neutrophils # 12.2 K/mcL (1.6-8.9); Platelet Count 268 K/mcL (140-400); Red Blood Count 4.21 M/mcL (4.19-5.50); Red Cell Distribution Width 12.8 % (11.5-14.5); Segmented Neutrophils % 88.9 %; White Blood Count 13.8 K/mcL (4.3-11.1)
[2021-09-26 18:23] LABS: INR 1.1; Prothrombin Time 11.9 Seconds (9.4-12.1)
[2021-09-26 18:30] LABS: Activated Partial Thrombo Time 33.6 Seconds (26.0-36.0)
[2021-09-26 18:33] LABS: BUN/Creatinine Ratio 21 (6-26); Blood Urea Nitrogen 25 mg/dL (8-23); Calcium 9.3 mg/dL (8.6-10.3); Carbon Dioxide 30 mEq/L (23-29); Chloride 99 mEq/L (98-107); Glucose 144 mg/dL (70-105); Osmolality,Calculated 289 (280-300); Potassium 4.3 mEq/L (3.5-5.1); Sodium 136 mEq/L (136-145); eGFR For African Americans > 60 (> 60); eGFR For Non-African Americans 59 (> 60)
[2021-09-26 18:34] LABS: Troponin I < 0.03 ng/mL (< 0.04)
[2021-09-26] MEDS ORDERED: *HR* HYDROcodone/Acet 5/325 mg TABLET PO PRN (19:33)
[2021-09-26] MEDS ORDERED: *HR* OxyCODONE Immed Rel 5 MG TABLET PO PRN (19:33)
[2021-09-26] MEDS ORDERED: Naloxone 0.4 MG/ML INJ IVP PRN (19:33)
[2021-09-26] MEDS ORDERED: Melatonin 3 MG TABLET PO PRN (19:33)
[2021-09-26] MEDS ORDERED: Ondansetron ODT 4 MG TAB.RAPDIS SL PRN (19:33)
[2021-09-26] MEDS ORDERED: Nitroglycerin 0.4 MG TAB.SUBL SL PRN (19:36)
[2021-09-26] MEDS ORDERED: Dextrose Gel 15 GM/37.5 ML TUBE PO PRN ×2 (19:36)
[2021-09-26] MEDS ORDERED: D5% in Water 1,000 ML IVC PRN (19:36)
[2021-09-26] MEDS ORDERED: *HR* Dextrose 50 % in Water (Syg) 50 ML SYRINGE IVP PRN (19:36)
[2021-09-27 02:04] LABS: Hematocrit 38.8 % (37.5-50.1); Hemoglobin 12.3 g/dL (12.9-16.9); Mean Corpuscular HGB Conc 31.7 g/dL (31.6-35.5); Mean Corpuscular Hemoglobin 27.7 pg (28.0-33.3); Mean Corpuscular Volume 87.4 fL (83.0-100.0); Mean Platelet Volume 9.5 fL (9.4-12.4); Platelet Count 266 K/mcL (140-400); Red Blood Count 4.44 M/mcL (4.19-5.50); Red Cell Distribution Width 12.8 % (11.5-14.5); White Blood Count 11.6 K/mcL (4.3-11.1)
[2021-09-27 02:15] LABS: Estimated Average Glucose 120 mg/dl; Hemoglobin A1C 5.8 %
[2021-09-27 02:36] LABS: BUN/Creatinine Ratio 23 (6-26); Blood Urea Nitrogen 25 mg/dL (8-23); Calcium 8.9 mg/dL (8.6-10.3); Carbon Dioxide 27 mEq/L (23-29); Chloride 102 mEq/L (98-107); Chol/HDL Ratio 1.7 (0-4.9); Cholesterol 131 mg/dL (< 200); Glucose 118 mg/dL (70-105); HDL Cholesterol 77 mg/dL (40-59); LDL Cholesterol,Calculated 46 mg/dL (< 100); Magnesium 2.2 mg/dL (1.6-2.6); Osmolality,Calculated 291 (280-300); Phosphorous 3.5 mg/dL (2.7-4.5); Potassium 3.6 mEq/L (3.5-5.1); Sodium 138 mEq/L (136-145); Triglycerides 40 mg/dL (< 150); Troponin I 0.03 ng/mL (< 0.04); eGFR For African Americans > 60 (> 60); eGFR For Non-African Americans > 60 (> 60)
[2021-09-27 02:46] LABS: Thyroid Stimulating Hormone 1.019 mcIU/mL (0.340-5.600)
[2021-09-27] MEDS ORDERED: Regadenoson 0.4 MG/5 ML SYRINGE IVP ONE (06:10)
[2021-09-27] MEDS: Aspirin 81 MG TAB.CHEW PO SCH (11:34)
[2021-09-27] MEDS ORDERED: Ipratropium/Albuterol Neb 3 ML IH PRN (11:56)
[2021-09-27] MEDS ORDERED: 0.9 % Sodium Chloride 1,000 ML IVC SCH (12:00)
[2021-09-27] MEDS ORDERED: 0.9 % Sodium Chloride 500 ML IVC SCH (12:01)
[2021-09-27 17:24] LABS: Amphetamine Screen,Urine Negative ng/mL (Cutoff=1000); Barbiturate Screen,Urine Negative ng/mL (Cutoff=200); Benzodiazepines Screen,Urine Negative ng/mL (Cutoff=200); Cannabinoid Screen,Urine Positive ng/mL (Cutoff = 50); Cocaine Screen,Urine Negative ng/mL (Cutoff= 300); Opiate Screen,Urine Negative ng/mL (Cutoff=300); Phencyclidine Screen,Urine Negative ng/mL (Cutoff=25)
[2021-09-27 17:37] LABS: Bilirubin,Urine Small (Negative); Blood,Urine Negative (Negative); Clarity,Urine Slightly Cloudy (Clear); Color,Urine Yellow (Yellow); Glucose,Urine (UA) Normal (Normal); Ketones,Urine Trace mg/dL (Negative); Leukocyte Esterase,Urine Trace (Negative); Nitrite,Urine Negative (Negative); PH,Urine 6.5 pH Units (5.0-8.0); Protein,Urine Trace mg/dL (Neg-Trace); Specific Gravity,Urine 1.015 (1.010-1.025)
[2021-09-27 17:43] LABS: Bacteria,Urine Few per hpf (None-Few); Mucus,Urine Few per lpf (None-Few); RBC,Urine 0-3 per hpf (0-3); Squamous Epithelial Cell,Urine Few per hpf (None-Few)
[2021-09-27] MEDS: Acetaminophen 325 MG TABLET PO PRN (19:16)
[2021-09-28] MEDS: *HR* Enoxaparin 40 MG/0.4 ML SYRINGE SQ SCH (05:59)
[2021-09-28] MEDS: Aspirin 81 MG TAB.CHEW PO SCH (08:29)
[2021-09-28] MEDS: Acetaminophen 325 MG TABLET PO PRN ×2 (10:15→20:28)
[2021-09-28] MEDS: 0.9 % Sodium Chloride 1,000 ML IVC SCH (18:42)
[2021-09-29 03:06] LABS: BUN/Creatinine Ratio 22 (6-26); Blood Urea Nitrogen 18 mg/dL (8-23); Carbon Dioxide 28 mEq/L (23-29); Chloride 104 mEq/L (98-107); Glucose 95 mg/dL (70-105); Osmolality,Calculated 286 (280-300); Potassium 3.5 mEq/L (3.5-5.1); Sodium 137 mEq/L (136-145)
[2021-09-29] MEDS: *HR* Enoxaparin 40 MG/0.4 ML SYRINGE SQ SCH (05:48)
[2021-09-29] MEDS: 0.9 % Sodium Chloride 1,000 ML IVC SCH (05:58)
[2021-09-29 08:04] VITALS: BP 87/58; PULSE 78; TEMP 97.5; O2SAT 100
[2021-09-29] MEDS: Aspirin 81 MG TAB.CHEW PO SCH (08:54)
== END 2021-09-29 13:25 | disposition hospice, home (50) | DRG 313 ==
LOC: EMEROOARM 16:26 → 3ANU 16:26 → SUATTDRO 20:17 → 3ANU 21:41
PROVIDERS: ADMIT Internal Medicine; ATTEND Family Medicine